=== PATIENT | male | born 1940 | race Caucasian/White ===

== ENCOUNTER 2017-04-11 16:32 | Emergency (ER) | payer MEDICARE, OTHER ==
[~2017-04-11] VITALS: Ht 162.6 cm; Wt 72.7 kg
[~2017-04-11 16:32] MED LIST: AMLO-511 PO; HYDR10 PO; HYDR25TA PO; LOSA50TA37 PO; TAMS0.4C32 PO
[2017-04-11 19:56] VITALS: BP 138/78
[2017-04-11 20:16] LABS: BASOPHILS # (AUTO) 0.01 K/uL (0.00-0.20); BASOPHILS % (AUTO) 0.1 % (0.0-2.0); EOSINOPHILS # (AUTO) 0.26 K/uL (0.00-0.70); EOSINOPHILS % (AUTO) 4.71 % (1.0-6.0); HEMATOCRIT 28.3 % (41-53); HEMOGLOBIN 8.8 g/dL (13.5-17.5); LYMPHOCYTES # (AUTO) 0.7 K/uL (1.0-4.8); MEAN CORPUSCULAR HEMOGLOBIN 25.2 pg (26.0-34.0); MEAN CORPUSCULAR HGB CONC 31.1 G/dL (31.0-37.0); MEAN CORPUSCULAR VOLUME 81 fL (80-100); MONOCYTES # (AUTO) 0.5 K/uL (0.1-1.0); MONOCYTES % (AUTO) 9.3 % (2.0-9.0); NEUTROPHILS % (AUTO) 73.9 % (40.0-70.0); PLATELET COUNT (AUTO) 276 K/uL (150-450); RED BLOOD CELL COUNT(AUTO) 3.48 MIL/uL (4.50-5.90); RED CELL DISTRIBUTION WIDTH 20.1 % (11.5-14.5); WHITE BLOOD COUNT (AUTO) 5.5 K/uL (4.5-11.0)
[2017-04-11 20:22] LABS: INR 1.8 (0.9-1.1); PROTHROMBIN TIME 19.5 SEC (9.4-11.6)
[2017-04-11 21:05] LABS: RBC MORPHOLOGY COMMENT ABNORMAL RBC MORPH
== END 2017-04-11 20:14 | disposition home or self-care (01) ==
LOC: EMS 16:34
DX: S20.212A Contusion of left front wall of thorax, initial encounter (principal); D68.32 Hemorrhagic disorder due to extrinsic circulating anticoagulants; I25.10 Atherosclerotic heart disease of native coronary artery without angina pectoris; I48.91 Unspecified atrial fibrillation; E78.00 Pure hypercholesterolemia, unspecified; I10 Essential (primary) hypertension; W10.9XXA Fall (on) (from) unspecified stairs and steps, initial encounter; Y93.01 Activity, walking, marching and hiking; Y92.89 Other specified places as the place of occurrence of the external cause; Y99.8 Other external cause status
CPT/HCPCS: 99284

== ENCOUNTER → 2017-04-13 | Outpatient (CLI) | payer MEDICARE, OTHER ==
[~2017-04-13] MED LIST changes: -AMLO-511 PO; -HYDR25TA PO; -TAMS0.4C32 PO
== END | disposition home or self-care (01) ==
LOC: RADPV 13:55
PROVIDERS: ATTEND Family Medicine
DX: S52.125A Nondisplaced fracture of head of left radius, initial encounter for closed fracture (principal); M19.022 Primary osteoarthritis, left elbow; M19.012 Primary osteoarthritis, left shoulder; M19.011 Primary osteoarthritis, right shoulder; S52.135D Nondisplaced fracture of neck of left radius, subsequent encounter for closed fracture with routine healing; X58.XXXA Exposure to other specified factors, initial encounter; Y93.9 Activity, unspecified; Y92.9 Unspecified place or not applicable; Y99.9 Unspecified external cause status

== ENCOUNTER 2017-06-17 17:00 | Inpatient (IN) | payer MEDICARE, OTHER ==
[~2017-06-17] VITALS: Ht 165.1 cm; Wt 76.2 kg
[~2017-06-17 17:00] MED LIST changes: +ACET-784 PO; +APIX2.5T PO; +AUD NEB; +BISA10S PR; +CARV6 PO; +DSS100 PO; +EPOE10003 SQ; +FURO-151 PO; -HYDR10 PO; +HYDR10TA31 PO; +IPRNEB IH; +MV-M1TAB2 PO; +ONDA4 IV; +OXYC-38 PO; +PANT40TA25 PO; +QUET25TA PO; +TAMS0.4C32 PO; +WARF10TA23 PO; +ZOSY225FZ IV
[2017-06-17] MEDS ORDERED: HEPARIN SODIUM,PORCINE 1,000 UNITS/ML VIAL IVP ONE (17:34)
[2017-06-17] MEDS ORDERED: DOCUSATE SODIUM 283 MG/5 ML MINI-ENEMA PR PRN (18:15)
[2017-06-17] MEDS ORDERED: ONDANSETRON HCL 4 MG/2 ML VIAL IVP PRN (18:15)
[2017-06-17] MEDS ORDERED: OxyCODONE HCL/ACETAMINOPHEN 5-325 MG TABLET PO PRN (18:15)
[2017-06-17 19:48] VITALS: BP 113/61
[2017-06-17] MEDS: IPRATROPIUM BROMIDE 0.5 MG/2.5 ML NEB SOLUTION NEB SCH ×2 (19:54→22:15)
[2017-06-17] MEDS: ALBUTEROL SULFATE 2.5 MG/0.5 ML NEB SOLUTION NEB SCH ×2 (19:54→22:15)
[2017-06-17] MEDS ORDERED: TEMAZEPAM 15 MG CAPSULE PO PRN (20:15)
[2017-06-17] MEDS: DOCUSATE SODIUM 100 MG CAPSULE PO SCH (21:00)
[2017-06-17] MEDS: SENNA 187 MG TABLET PO SCH (21:00)
[2017-06-17] MEDS: CARVEDILOL 6.25 MG TABLET PO SCH ×2 (21:00→22:09)
[2017-06-17 21:22] VITALS: BP 129/77
[2017-06-17] MEDS: TAMSULOSIN HCL 0.4 MG CAPSULE PO SCH (22:07)
[2017-06-17] MEDS: APIXABAN 2.5 MG TABLET PO SCH (22:07)
[2017-06-17] MEDS: PIPERACILLIN SODIUM/TAZOBACTAM 2.25 GM in DEXTROSE 5%-WATER 50 ML IV SCH (22:08)
[2017-06-17 23:48] VITALS: BP 111/66
[2017-06-18] MEDS: 0.9% SODIUM CHLORIDE 10 ML SYRINGE IVP SCH ×4 (00:10→23:37)
[2017-06-18] MEDS: OXYGEN THERAPY IH SCH ×3 (01:09→23:36)
[2017-06-18 01:40] LABS: APPEARANCE,URINE TURBID (CLEAR); GLUCOSE, URINE (UA) NEGATIVE (NEGATIVE); KETONES,URINE NEGATIVE (NEGATIVE); LEUKOCYTE ESTERASE ,URINE LARGE (NEGATIVE); OCCULT BLOOD,URINE LARGE (NEGATIVE); PROTEIN,URINE SEE CONFIRM (NEGATIVE)
[2017-06-18 02:02] LABS: SULFOSALICYLIC ACID,URINE 2+ (Negative)
[2017-06-18 02:04] LABS: WBC,URINE >100 /HPF (0-5)
[2017-06-18] MEDS: PIPERACILLIN SODIUM/TAZOBACTAM 2.25 GM in DEXTROSE 5%-WATER 50 ML IV SCH (05:08)
[2017-06-18] MEDS ORDERED: VANCOMYCIN HCL 1 GM/D5% WATER 200 ML IV ONE (06:00)
[2017-06-18] MEDS: IPRATROPIUM BROMIDE 0.5 MG/2.5 ML NEB SOLUTION NEB SCH ×4 (07:00→23:00)
[2017-06-18] MEDS: ALBUTEROL SULFATE 2.5 MG/0.5 ML NEB SOLUTION NEB SCH ×4 (07:00→23:00)
[2017-06-18 07:20] LABS: BASOPHILS % (AUTO) 0.9 % (0.0-2.0); EOSINOPHILS % (AUTO) 5.1 % (1.0-6.0); HEMATOCRIT 31.8 % (41-53); HEMOGLOBIN 10.2 g/dL (13.5-17.5); LYMPHOCYTES # (AUTO) 0.8 K/uL (1.0-4.8); LYMPHOCYTES % (AUTO) 14.4 % (22.0-44.0); MEAN CORPUSCULAR HEMOGLOBIN 29.4 pg (26.0-34.0); MEAN CORPUSCULAR VOLUME 92 fL (80-100); MONOCYTES # (AUTO) 0.5 K/uL (0.1-1.0); MONOCYTES % (AUTO) 8.2 % (2.0-9.0); NEUTROPHILS % (AUTO) 71.4 % (40.0-70.0); PLATELET COUNT (AUTO) 157 K/uL (150-450); RED BLOOD CELL COUNT(AUTO) 3.47 MIL/uL (4.50-5.90); RED CELL DISTRIBUTION WIDTH 27.7 % (11.5-14.5); WHITE BLOOD COUNT (AUTO) 5.6 K/uL (4.5-11.0)
[2017-06-18 07:40] VITALS: BP 122/61
[2017-06-18 07:47] LABS: ALBUMIN 2.8 g/dL (3.4-5.0); BILIRUBIN,TOTAL 1.1 mg/dL (0.1-1.0); CREATININE 4.5 mg/dL (0.60-1.30); MAGNESIUM 1.8 mg/dL (1.80-2.40); PHOSPHORUS 4.8 mg/dL (2.5-4.9); POTASSIUM 3.6 mmol/L (3.5-5.1); TOTAL PROTEIN, SERUM 5.9 g/dL (6.4-8.2)
[2017-06-18] MEDS: MULTIVITAMINS WITH MINERALS, THERAPEUTIC TABLET PO SCH (08:07)
[2017-06-18] MEDS: PANTOPRAZOLE SODIUM 40 MG DR TABLET PO SCH (08:07)
[2017-06-18] MEDS: DOCUSATE SODIUM 100 MG CAPSULE PO SCH ×3 (08:07→21:00)
[2017-06-18] MEDS: FUROSEMIDE 40 MG TABLET PO SCH (08:07)
[2017-06-18] MEDS: APIXABAN 2.5 MG TABLET PO SCH ×2 (08:07→21:46)
[2017-06-18] MEDS: CARVEDILOL 6.25 MG TABLET PO SCH ×2 (08:07→21:46)
[2017-06-18] MEDS: EPOETIN ALFA 10,000 UNITS/ML VIAL SQ SCH (08:07)
[2017-06-18] MEDS ORDERED: VANCOMYCIN HCL 1 GM/D5% WATER 200 ML IV PRN (08:30)
[2017-06-18] MEDS: CefTAZidime PENTAHYDRATE 1 GM in DEXTROSE 5%-WATER 50 ML IV SCH (18:58)
[2017-06-18 19:23] VITALS: BP 136/94
[2017-06-18] MEDS: SENNA 187 MG TABLET PO SCH (21:00)
[2017-06-18] MEDS: TAMSULOSIN HCL 0.4 MG CAPSULE PO SCH (21:46)
[2017-06-18] MEDS: LACTOBACILLUS ACIDOPHILUS/BULGARICUS TABLET PO SCH (21:46)
[2017-06-19] MEDS: 0.9% SODIUM CHLORIDE 10 ML SYRINGE IVP SCH ×4 (00:02→23:24)
[2017-06-19 00:34] VITALS: BP 115/72
[2017-06-19] MEDS: ACETAMINOPHEN 325 MG TABLET PO PRN (01:42)
[2017-06-19] MEDS: OXYGEN THERAPY IH SCH ×2 (07:25→20:13)
[2017-06-19] MEDS: IPRATROPIUM BROMIDE 0.5 MG/2.5 ML NEB SOLUTION NEB SCH ×5 (07:25→23:00)
[2017-06-19] MEDS: ALBUTEROL SULFATE 2.5 MG/0.5 ML NEB SOLUTION NEB SCH ×5 (07:25→23:00)
[2017-06-19 07:39] VITALS: BP 137/76
[2017-06-19] MEDS: DOCUSATE SODIUM 100 MG CAPSULE PO SCH ×2 (09:00→20:14)
[2017-06-19] MEDS: CARVEDILOL 6.25 MG TABLET PO SCH ×2 (09:42→20:14)
[2017-06-19] MEDS: FUROSEMIDE 40 MG TABLET PO SCH (09:42)
[2017-06-19] MEDS: PANTOPRAZOLE SODIUM 40 MG DR TABLET PO SCH (09:42)
[2017-06-19] MEDS: MULTIVITAMINS WITH MINERALS, THERAPEUTIC TABLET PO SCH (09:43)
[2017-06-19] MEDS ORDERED: SODIUM CL IRRIG SOLN BOTTLE 250 ML IRRIG ONE (10:28)
[2017-06-19] MEDS: APIXABAN 2.5 MG TABLET PO SCH ×2 (10:50→20:14)
[2017-06-19] MEDS: LACTOBACILLUS ACIDOPHILUS/BULGARICUS TABLET PO SCH ×2 (10:50→20:14)
[2017-06-19] MEDS: FLUCONAZOLE 100 MG TABLET PO SCH (10:50)
[2017-06-19 15:20] VITALS: BP 113/80
[2017-06-19] MEDS: CefTAZidime PENTAHYDRATE 1 GM in DEXTROSE 5%-WATER 50 ML IV SCH (16:17)
[2017-06-19 20:05] VITALS: BP 111/78
[2017-06-19] MEDS: TAMSULOSIN HCL 0.4 MG CAPSULE PO SCH (20:14)
[2017-06-19] MEDS: SENNA 187 MG TABLET PO SCH (20:14)
[2017-06-19 23:24] VITALS: BP 126/58
[2017-06-20] MEDS: ACETAMINOPHEN 325 MG TABLET PO PRN (02:24)
[2017-06-20] MEDS ORDERED: WATER FOR IRRIGATION,STERILE 1000 ML SOLUTION BOTTLE ONE (04:17)
[2017-06-20 06:40] LABS: BASOPHILS # (AUTO) 0.04 K/uL (0.00-0.20); BASOPHILS % (AUTO) 0.6 % (0.0-2.0); EOSINOPHILS % (AUTO) 3.61 % (1.0-6.0); HEMOGLOBIN 10.1 g/dL (13.5-17.5); LYMPHOCYTES # (AUTO) 1.1 K/uL (1.0-4.8); LYMPHOCYTES % (AUTO) 19.5 % (22.0-44.0); MEAN CORPUSCULAR HEMOGLOBIN 29.8 pg (26.0-34.0); MEAN CORPUSCULAR HGB CONC 31.6 G/dL (31.0-37.0); MEAN CORPUSCULAR VOLUME 94 fL (80-100); MONOCYTES # (AUTO) 0.5 K/uL (0.1-1.0); MONOCYTES % (AUTO) 8.1 % (2.0-9.0); NEUTROPHILS # (AUTO) 3.8 K/uL (1.8-7.7); NEUTROPHILS % (AUTO) 68.1 % (40.0-70.0); PLATELET COUNT (AUTO) 157 K/uL (150-450); RED CELL DISTRIBUTION WIDTH 28.4 % (11.5-14.5); WHITE BLOOD COUNT (AUTO) 5.5 K/uL (4.5-11.0)
[2017-06-20 06:55] LABS: CALCIUM, TOTAL 9.3 mg/dL (8.8-10.5); CREATININE 4.2 mg/dL (0.60-1.30); POTASSIUM 3.5 mmol/L (3.5-5.1)
[2017-06-20] MEDS: IPRATROPIUM BROMIDE 0.5 MG/2.5 ML NEB SOLUTION NEB SCH ×5 (07:38→22:59)
[2017-06-20] MEDS: ALBUTEROL SULFATE 2.5 MG/0.5 ML NEB SOLUTION NEB SCH ×5 (07:38→22:59)
[2017-06-20 08:30] VITALS: BP 125/70
[2017-06-20 08:48] LABS: RBC MORPHOLOGY COMMENT ABNORMAL RBC MORPH
[2017-06-20] MEDS: DOCUSATE SODIUM 100 MG CAPSULE PO SCH ×3 (09:00→20:59)
[2017-06-20] MEDS: PANTOPRAZOLE SODIUM 40 MG DR TABLET PO SCH (09:24)
[2017-06-20] MEDS: LACTOBACILLUS ACIDOPHILUS/BULGARICUS TABLET PO SCH ×2 (09:24→20:51)
[2017-06-20] MEDS: APIXABAN 2.5 MG TABLET PO SCH ×2 (09:24→20:51)
[2017-06-20] MEDS: FUROSEMIDE 40 MG TABLET PO SCH (09:24)
[2017-06-20] MEDS: CARVEDILOL 6.25 MG TABLET PO SCH ×2 (09:24→20:51)
[2017-06-20] MEDS: 0.9% SODIUM CHLORIDE 10 ML SYRINGE IVP SCH ×3 (09:24→23:40)
[2017-06-20] MEDS: FLUCONAZOLE 100 MG TABLET PO SCH (09:24)
[2017-06-20] MEDS: MULTIVITAMINS WITH MINERALS, THERAPEUTIC TABLET PO SCH (09:24)
[2017-06-20] MEDS: OXYGEN THERAPY IH SCH ×2 (09:25→20:51)
[2017-06-20 16:00] VITALS: BP 125/64
[2017-06-20] MEDS: CefTAZidime PENTAHYDRATE 1 GM in DEXTROSE 5%-WATER 50 ML IV SCH (16:29)
[2017-06-20] MEDS ORDERED: SODIUM CHLORIDE 0.9% 1,000 ML IV ONE (17:27)
[2017-06-20 20:45] VITALS: BP 147/88
[2017-06-20] MEDS: TAMSULOSIN HCL 0.4 MG CAPSULE PO SCH (20:51)
[2017-06-20] MEDS: CLOTRIMAZOLE 1% 15 GM CREAM TP SCH (20:51)
[2017-06-20] MEDS: SENNA 187 MG TABLET PO SCH (20:59)
[2017-06-20 23:45] VITALS: BP 110/78
[2017-06-21] MEDS: ACETAMINOPHEN 325 MG TABLET PO PRN (03:39)
[2017-06-21] MEDS: OXYGEN THERAPY IH SCH ×2 (06:42→20:08)
[2017-06-21] MEDS: ALBUTEROL SULFATE 2.5 MG/0.5 ML NEB SOLUTION NEB SCH ×5 (06:42→23:25)
[2017-06-21] MEDS: IPRATROPIUM BROMIDE 0.5 MG/2.5 ML NEB SOLUTION NEB SCH ×5 (06:42→23:25)
[2017-06-21 07:15] VITALS: BP 125/79
[2017-06-21] MEDS: 0.9% SODIUM CHLORIDE 10 ML SYRINGE IVP SCH ×3 (08:01→23:25)
[2017-06-21] MEDS: CLOTRIMAZOLE 1% 15 GM CREAM TP SCH ×2 (08:01→20:04)
[2017-06-21] MEDS: FUROSEMIDE 40 MG TABLET PO SCH (08:01)
[2017-06-21] MEDS: DOCUSATE SODIUM 100 MG CAPSULE PO SCH ×3 (08:01→21:00)
[2017-06-21] MEDS: EPOETIN ALFA 10,000 UNITS/ML VIAL SQ SCH (08:01)
[2017-06-21] MEDS: FLUCONAZOLE 100 MG TABLET PO SCH (08:01)
[2017-06-21] MEDS: PANTOPRAZOLE SODIUM 40 MG DR TABLET PO SCH (08:01)
[2017-06-21] MEDS: CARVEDILOL 6.25 MG TABLET PO SCH ×2 (08:02→20:04)
[2017-06-21] MEDS: MULTIVITAMINS WITH MINERALS, THERAPEUTIC TABLET PO SCH (08:02)
[2017-06-21] MEDS: LACTOBACILLUS ACIDOPHILUS/BULGARICUS TABLET PO SCH ×2 (08:02→20:03)
[2017-06-21] MEDS ORDERED: HEPARIN SODIUM,PORCINE 1,000 UNITS/ML VIAL IVP ONE ×2 (12:00)
[2017-06-21] MEDS ORDERED: SODIUM CHLORIDE 0.9% 1,000 ML IV ONE ×2 (12:53)
[2017-06-21 17:48] VITALS: BP 111/75
[2017-06-21] MEDS: LEVOFLOXACIN 250 MG TABLET PO SCH (19:47)
[2017-06-21] MEDS: TAMSULOSIN HCL 0.4 MG CAPSULE PO SCH (20:03)
[2017-06-21 20:06] VITALS: BP 111/64
[2017-06-21] MEDS: SENNA 187 MG TABLET PO SCH (21:00)
[2017-06-21 23:35] VITALS: BP 116/69
[2017-06-22] MEDS: IPRATROPIUM BROMIDE 0.5 MG/2.5 ML NEB SOLUTION NEB SCH ×5 (07:00→22:47)
[2017-06-22] MEDS: ALBUTEROL SULFATE 2.5 MG/0.5 ML NEB SOLUTION NEB SCH ×5 (07:00→22:47)
[2017-06-22 07:52] VITALS: BP 149/79
[2017-06-22] MEDS: OXYGEN THERAPY IH SCH ×2 (08:00→19:31)
[2017-06-22] MEDS: PANTOPRAZOLE SODIUM 40 MG DR TABLET PO SCH (08:35)
[2017-06-22] MEDS: LACTOBACILLUS ACIDOPHILUS/BULGARICUS TABLET PO SCH ×2 (08:35→21:10)
[2017-06-22] MEDS: FUROSEMIDE 40 MG TABLET PO SCH (08:35)
[2017-06-22] MEDS: CLOTRIMAZOLE 1% 15 GM CREAM TP SCH ×2 (08:35→21:10)
[2017-06-22] MEDS: LEVOFLOXACIN 250 MG TABLET PO SCH (08:35)
[2017-06-22] MEDS: MULTIVITAMINS WITH MINERALS, THERAPEUTIC TABLET PO SCH (08:35)
[2017-06-22] MEDS: CARVEDILOL 6.25 MG TABLET PO SCH ×2 (08:35→21:10)
[2017-06-22] MEDS: 0.9% SODIUM CHLORIDE 10 ML SYRINGE IVP SCH (08:36)
[2017-06-22] MEDS: DOCUSATE SODIUM 100 MG CAPSULE PO SCH ×3 (08:36→21:10)
[2017-06-22 15:04] VITALS: BP 124/82
[2017-06-22] MEDS: SENNA 187 MG TABLET PO SCH (21:10)
[2017-06-22] MEDS: TAMSULOSIN HCL 0.4 MG CAPSULE PO SCH (21:10)
[2017-06-23 00:07] VITALS: BP 108/68
[2017-06-23 07:13] LABS: BASOPHILS # (AUTO) 0.03 K/uL (0.00-0.20); BASOPHILS % (AUTO) 0.8 % (0.0-2.0); EOSINOPHILS # (AUTO) 0.24 K/uL (0.00-0.70); EOSINOPHILS % (AUTO) 5.44 % (1.0-6.0); HEMATOCRIT 29.3 % (41-53); LYMPHOCYTES # (AUTO) 1.2 K/uL (1.0-4.8); LYMPHOCYTES % (AUTO) 26.3 % (22.0-44.0); MEAN CORPUSCULAR HEMOGLOBIN 29.1 pg (26.0-34.0); MEAN CORPUSCULAR HGB CONC 30.8 G/dL (31.0-37.0); MEAN CORPUSCULAR VOLUME 94 fL (80-100); MONOCYTES # (AUTO) 0.4 K/uL (0.1-1.0); MONOCYTES % (AUTO) 8.8 % (2.0-9.0); NEUTROPHILS # (AUTO) 2.6 K/uL (1.8-7.7); NEUTROPHILS % (AUTO) 58.7 % (40.0-70.0); PLATELET COUNT (AUTO) 143 K/uL (150-450); RED CELL DISTRIBUTION WIDTH 28.7 % (11.5-14.5); WHITE BLOOD COUNT (AUTO) 4.5 K/uL (4.5-11.0)
[2017-06-23 07:16] VITALS: BP 132/72
[2017-06-23] MEDS: OXYGEN THERAPY IH SCH ×2 (07:21→20:00)
[2017-06-23 07:22] LABS: CALCIUM, TOTAL 9.2 mg/dL (8.8-10.5); CREATININE 4.46 mg/dL (0.60-1.30); POTASSIUM 3.6 mmol/L (3.5-5.1)
[2017-06-23] MEDS: IPRATROPIUM BROMIDE 0.5 MG/2.5 ML NEB SOLUTION NEB SCH ×5 (07:50→23:34)
[2017-06-23] MEDS: ALBUTEROL SULFATE 2.5 MG/0.5 ML NEB SOLUTION NEB SCH ×5 (07:50→23:34)
[2017-06-23] MEDS: DOCUSATE SODIUM 100 MG CAPSULE PO SCH ×4 (09:00→21:17)
[2017-06-23] MEDS: LACTOBACILLUS ACIDOPHILUS/BULGARICUS TABLET PO SCH ×2 (09:09→21:17)
[2017-06-23] MEDS: CLOTRIMAZOLE 1% 15 GM CREAM TP SCH ×2 (09:09→21:17)
[2017-06-23] MEDS: LEVOFLOXACIN 250 MG TABLET PO SCH (09:09)
[2017-06-23] MEDS: CARVEDILOL 6.25 MG TABLET PO SCH ×2 (09:10→21:17)
[2017-06-23] MEDS: MULTIVITAMINS WITH MINERALS, THERAPEUTIC TABLET PO SCH (09:10)
[2017-06-23] MEDS: EPOETIN ALFA 10,000 UNITS/ML VIAL SQ SCH (09:10)
[2017-06-23] MEDS: PANTOPRAZOLE SODIUM 40 MG DR TABLET PO SCH (09:10)
[2017-06-23] MEDS: FUROSEMIDE 40 MG TABLET PO SCH (09:10)
[2017-06-23] MEDS ORDERED: HEPARIN SODIUM,PORCINE 1,000 UNITS/ML VIAL IVP ONE (12:00)
[2017-06-23] MEDS ORDERED: SODIUM CHLORIDE 0.9% 2,000 ML IV ONE (13:02)
[2017-06-23 13:03] LABS: RBC MORPHOLOGY COMMENT DIMORPHIC RBC
[2017-06-23 17:24] VITALS: BP 132/82
[2017-06-23 20:30] VITALS: BP 117/78
[2017-06-23] MEDS: SENNA 187 MG TABLET PO SCH ×2 (21:00→21:17)
[2017-06-23] MEDS: TAMSULOSIN HCL 0.4 MG CAPSULE PO SCH (21:17)
[2017-06-24] VITALS: BP 126/68
[2017-06-24 07:11] VITALS: BP 113/74
[2017-06-24] MEDS: IPRATROPIUM BROMIDE 0.5 MG/2.5 ML NEB SOLUTION NEB SCH ×5 (07:26→23:49)
[2017-06-24] MEDS: ALBUTEROL SULFATE 2.5 MG/0.5 ML NEB SOLUTION NEB SCH ×5 (07:26→23:49)
[2017-06-24] MEDS: PANTOPRAZOLE SODIUM 40 MG DR TABLET PO SCH (08:00)
[2017-06-24] MEDS: OXYGEN THERAPY IH SCH ×2 (08:00→20:00)
[2017-06-24] MEDS: MULTIVITAMINS WITH MINERALS, THERAPEUTIC TABLET PO SCH (08:01)
[2017-06-24] MEDS: CLOTRIMAZOLE 1% 15 GM CREAM TP SCH ×2 (08:01→21:14)
[2017-06-24] MEDS: CARVEDILOL 6.25 MG TABLET PO SCH ×2 (08:01→21:16)
[2017-06-24] MEDS: DOCUSATE SODIUM 100 MG CAPSULE PO SCH ×2 (08:01→09:00)
[2017-06-24] MEDS: LEVOFLOXACIN 250 MG TABLET PO SCH (08:01)
[2017-06-24] MEDS: LACTOBACILLUS ACIDOPHILUS/BULGARICUS TABLET PO SCH ×2 (08:01→21:06)
[2017-06-24] MEDS: FUROSEMIDE 40 MG TABLET PO SCH (08:02)
[2017-06-24 15:34] VITALS: BP 124/86
[2017-06-24 21:00] VITALS: BP 132/76
[2017-06-24] MEDS ORDERED: DOCUSATE SODIUM 100 MG CAPSULE PO PRN (21:00)
[2017-06-24] MEDS: TAMSULOSIN HCL 0.4 MG CAPSULE PO SCH (21:06)
[2017-06-24] MEDS: SENNA 187 MG TABLET PO SCH (21:06)
[2017-06-25 00:08] VITALS: BP 123/68
[2017-06-25 06:35] LABS: BASOPHILS # (AUTO) 0.01 K/uL (0.00-0.20); BASOPHILS % (AUTO) 0.3 % (0.0-2.0); EOSINOPHILS # (AUTO) 0.23 K/uL (0.00-0.70); EOSINOPHILS % (AUTO) 5.11 % (1.0-6.0); HEMATOCRIT 30.2 % (41-53); HEMOGLOBIN 9.3 g/dL (13.5-17.5); LYMPHOCYTES # (AUTO) 0.9 K/uL (1.0-4.8); LYMPHOCYTES % (AUTO) 20.4 % (22.0-44.0); MEAN CORPUSCULAR HEMOGLOBIN 29.2 pg (26.0-34.0); MEAN CORPUSCULAR HGB CONC 30.9 G/dL (31.0-37.0); MEAN CORPUSCULAR VOLUME 94 fL (80-100); MONOCYTES # (AUTO) 0.4 K/uL (0.1-1.0); MONOCYTES % (AUTO) 9.7 % (2.0-9.0); NEUTROPHILS # (AUTO) 2.9 K/uL (1.8-7.7); NEUTROPHILS % (AUTO) 64.5 % (40.0-70.0); PLATELET COUNT (AUTO) 131 K/uL (150-450); RED CELL DISTRIBUTION WIDTH 27.9 % (11.5-14.5); WHITE BLOOD COUNT (AUTO) 4.5 K/uL (4.5-11.0)
[2017-06-25 07:00] LABS: CALCIUM, TOTAL 9.3 mg/dL (8.8-10.5); CREATININE 4.37 mg/dL (0.60-1.30); MAGNESIUM 1.6 mg/dL (1.80-2.40); PHOSPHORUS 4.1 mg/dL (2.5-4.9); POTASSIUM 3.6 mmol/L (3.5-5.1)
[2017-06-25] MEDS: IPRATROPIUM BROMIDE 0.5 MG/2.5 ML NEB SOLUTION NEB SCH ×5 (07:28→20:16)
[2017-06-25] MEDS: ALBUTEROL SULFATE 2.5 MG/0.5 ML NEB SOLUTION NEB SCH ×5 (07:28→20:17)
[2017-06-25] MEDS: OXYGEN THERAPY IH SCH ×2 (07:38→20:00)
[2017-06-25 07:57] VITALS: BP 133/72
[2017-06-25] MEDS: PANTOPRAZOLE SODIUM 40 MG DR TABLET PO SCH (08:11)
[2017-06-25] MEDS: MULTIVITAMINS WITH MINERALS, THERAPEUTIC TABLET PO SCH (08:11)
[2017-06-25] MEDS: LACTOBACILLUS ACIDOPHILUS/BULGARICUS TABLET PO SCH ×2 (08:11→20:27)
[2017-06-25] MEDS: CARVEDILOL 6.25 MG TABLET PO SCH ×2 (08:11→20:27)
[2017-06-25] MEDS: FUROSEMIDE 40 MG TABLET PO SCH (08:12)
[2017-06-25] MEDS: LEVOFLOXACIN 250 MG TABLET PO SCH (08:12)
[2017-06-25] MEDS: EPOETIN ALFA 10,000 UNITS/ML VIAL SQ SCH (08:12)
[2017-06-25 09:45] LABS: RBC MORPHOLOGY COMMENT DIMORPHIC RBC
[2017-06-25] MEDS: CLOTRIMAZOLE 1% 15 GM CREAM TP SCH ×2 (13:33→20:27)
[2017-06-25 14:53] VITALS: BP 125/78
[2017-06-25] MEDS ORDERED: HEPARIN SODIUM,PORCINE 1,000 UNITS/ML VIAL IVP ONE (18:56)
[2017-06-25] MEDS: SENNA 187 MG TABLET PO SCH (20:27)
[2017-06-25] MEDS: TAMSULOSIN HCL 0.4 MG CAPSULE PO SCH (20:27)
[2017-06-25 20:52] VITALS: BP 128/76
[2017-06-25 23:29] VITALS: BP 121/63
[2017-06-26] MEDS: ALBUTEROL SULFATE 2.5 MG/0.5 ML NEB SOLUTION NEB SCH ×4 (07:39→19:44)
[2017-06-26] MEDS: IPRATROPIUM BROMIDE 0.5 MG/2.5 ML NEB SOLUTION NEB SCH ×4 (07:39→19:44)
[2017-06-26] MEDS: OXYGEN THERAPY IH SCH ×2 (08:00→20:00)
[2017-06-26 08:29] VITALS: BP 130/78
[2017-06-26] MEDS: PANTOPRAZOLE SODIUM 40 MG DR TABLET PO SCH (08:55)
[2017-06-26] MEDS: CARVEDILOL 6.25 MG TABLET PO SCH ×2 (08:55→20:07)
[2017-06-26] MEDS: CLOTRIMAZOLE 1% 15 GM CREAM TP SCH ×2 (08:55→20:06)
[2017-06-26] MEDS: LEVOFLOXACIN 250 MG TABLET PO SCH (08:55)
[2017-06-26] MEDS: LACTOBACILLUS ACIDOPHILUS/BULGARICUS TABLET PO SCH ×2 (08:55→20:06)
[2017-06-26] MEDS: MULTIVITAMINS WITH MINERALS, THERAPEUTIC TABLET PO SCH (08:55)
[2017-06-26 15:05] VITALS: BP 125/69
[2017-06-26] MEDS: SENNA 187 MG TABLET PO SCH ×2 (20:07→20:15)
[2017-06-26] MEDS: TAMSULOSIN HCL 0.4 MG CAPSULE PO SCH (20:07)
[2017-06-27] VITALS: BP 124/76
[2017-06-27 07:20] VITALS: BP 126/76
[2017-06-27] MEDS: ALBUTEROL SULFATE 2.5 MG/0.5 ML NEB SOLUTION NEB SCH ×5 (07:47→23:00)
[2017-06-27] MEDS: IPRATROPIUM BROMIDE 0.5 MG/2.5 ML NEB SOLUTION NEB SCH ×5 (07:47→23:00)
[2017-06-27] MEDS: OXYGEN THERAPY IH SCH ×2 (08:00→20:00)
[2017-06-27] MEDS: CARVEDILOL 6.25 MG TABLET PO SCH ×2 (08:26→20:55)
[2017-06-27] MEDS: LACTOBACILLUS ACIDOPHILUS/BULGARICUS TABLET PO SCH ×2 (08:26→20:55)
[2017-06-27] MEDS: FUROSEMIDE 40 MG TABLET PO SCH (08:26)
[2017-06-27] MEDS: CLOTRIMAZOLE 1% 15 GM CREAM TP SCH ×2 (08:26→22:57)
[2017-06-27] MEDS: LEVOFLOXACIN 250 MG TABLET PO SCH (08:27)
[2017-06-27] MEDS: MULTIVITAMINS WITH MINERALS, THERAPEUTIC TABLET PO SCH (08:27)
[2017-06-27] MEDS: PANTOPRAZOLE SODIUM 40 MG DR TABLET PO SCH (08:27)
[2017-06-27] MEDS: APIXABAN 2.5 MG TABLET PO SCH ×2 (16:37→21:31)
[2017-06-27 16:45] VITALS: BP 117/86
[2017-06-27] MEDS: TAMSULOSIN HCL 0.4 MG CAPSULE PO SCH (20:55)
[2017-06-27] MEDS: SENNA 187 MG TABLET PO SCH (21:00)
[2017-06-28] VITALS: BP 107/64
[2017-06-28 07:31] LABS: BASOPHILS % (AUTO) 0.5 % (0.0-2.0); EOSINOPHILS % (AUTO) 4.4 % (1.0-6.0); HEMATOCRIT 29.6 % (41-53); HEMOGLOBIN 9.5 g/dL (13.5-17.5); LYMPHOCYTES # (AUTO) 1.1 K/uL (1.0-4.8); LYMPHOCYTES % (AUTO) 25.1 % (22.0-44.0); MEAN CORPUSCULAR HEMOGLOBIN 29.9 pg (26.0-34.0); MEAN CORPUSCULAR HGB CONC 32.3 G/dL (31.0-37.0); MEAN CORPUSCULAR VOLUME 93 fL (80-100); MONOCYTES # (AUTO) 0.5 K/uL (0.1-1.0); MONOCYTES % (AUTO) 11.9 % (2.0-9.0); NEUTROPHILS # (AUTO) 2.6 K/uL (1.8-7.7); NEUTROPHILS % (AUTO) 58.1 % (40.0-70.0); PLATELET COUNT (AUTO) 109 K/uL (150-450); RED BLOOD CELL COUNT(AUTO) 3.19 MIL/uL (4.50-5.90); RED CELL DISTRIBUTION WIDTH 27.9 % (11.5-14.5); WHITE BLOOD COUNT (AUTO) 4.5 K/uL (4.5-11.0)
[2017-06-28 07:34] VITALS: BP 128/83
[2017-06-28 07:41] LABS: CALCIUM, TOTAL 9.2 mg/dL (8.8-10.5); CREATININE 5.04 mg/dL (0.60-1.30); MAGNESIUM 1.6 mg/dL (1.80-2.40); PHOSPHORUS 3.1 mg/dL (2.5-4.9)
[2017-06-28] MEDS: OXYGEN THERAPY IH SCH (08:00)
[2017-06-28] MEDS: MULTIVITAMINS WITH MINERALS, THERAPEUTIC TABLET PO SCH (08:01)
[2017-06-28] MEDS: PANTOPRAZOLE SODIUM 40 MG DR TABLET PO SCH (08:01)
[2017-06-28] MEDS: APIXABAN 2.5 MG TABLET PO SCH ×2 (08:01→20:32)
[2017-06-28] MEDS: CARVEDILOL 6.25 MG TABLET PO SCH ×2 (08:01→20:32)
[2017-06-28] MEDS: LACTOBACILLUS ACIDOPHILUS/BULGARICUS TABLET PO SCH ×2 (08:01→20:32)
[2017-06-28] MEDS: LEVOFLOXACIN 250 MG TABLET PO SCH (08:01)
[2017-06-28] MEDS: EPOETIN ALFA 10,000 UNITS/ML VIAL SQ SCH (08:02)
[2017-06-28] MEDS: CLOTRIMAZOLE 1% 15 GM CREAM TP SCH ×2 (08:04→20:32)
[2017-06-28] MEDS: ALBUTEROL SULFATE 2.5 MG/0.5 ML NEB SOLUTION NEB SCH ×5 (08:22→23:00)
[2017-06-28] MEDS: IPRATROPIUM BROMIDE 0.5 MG/2.5 ML NEB SOLUTION NEB SCH ×5 (08:22→23:00)
[2017-06-28] MEDS ORDERED: EPOETIN ALFA 10,000 UNITS/ML VIAL SQ SCH (09:00)
[2017-06-28] MEDS ORDERED: BARIUM SULFATE 0.1% SUSPENSION 450 ML BOTTLE ONE (09:11)
[2017-06-28 09:44] LABS: RBC MORPHOLOGY COMMENT ABNORMAL RBC MORPH
[2017-06-28] MEDS ORDERED: HEPARIN SODIUM,PORCINE 1,000 UNITS/ML VIAL IVP ONE ×3 (12:00→17:00)
[2017-06-28 15:33] VITALS: BP 126/87
[2017-06-28] MEDS ORDERED: MANNITOL 25%-12.5 GM/50 ML VIAL IVP PRN (17:00)
[2017-06-28] MEDS ORDERED: ALBUMIN HUMAN 25%-12.5GM/50ML IV BOTTLE IV PRN (17:00)
[2017-06-28] MEDS: TAMSULOSIN HCL 0.4 MG CAPSULE PO SCH (20:32)
[2017-06-28] MEDS: SENNA 187 MG TABLET PO SCH (20:32)
[2017-06-28 20:33] VITALS: BP 126/66
[2017-06-29] VITALS: BP 114/85
[2017-06-29] MEDS: ALBUTEROL SULFATE 2.5 MG/0.5 ML NEB SOLUTION NEB SCH ×5 (07:25→23:00)
[2017-06-29] MEDS: IPRATROPIUM BROMIDE 0.5 MG/2.5 ML NEB SOLUTION NEB SCH ×6 (07:25→23:00)
[2017-06-29 07:42] VITALS: BP 119/77
[2017-06-29] MEDS: OXYGEN THERAPY IH SCH ×3 (07:50→20:00)
[2017-06-29] MEDS: PANTOPRAZOLE SODIUM 40 MG DR TABLET PO SCH (07:51)
[2017-06-29] MEDS: LEVOFLOXACIN 250 MG TABLET PO SCH (07:51)
[2017-06-29] MEDS: LACTOBACILLUS ACIDOPHILUS/BULGARICUS TABLET PO SCH ×2 (07:51→20:17)
[2017-06-29] MEDS: CARVEDILOL 6.25 MG TABLET PO SCH ×2 (07:51→20:17)
[2017-06-29] MEDS: APIXABAN 2.5 MG TABLET PO SCH ×2 (07:51→20:17)
[2017-06-29] MEDS: FUROSEMIDE 40 MG TABLET PO SCH (07:51)
[2017-06-29] MEDS: MULTIVITAMINS WITH MINERALS, THERAPEUTIC TABLET PO SCH (07:52)
[2017-06-29] MEDS: CLOTRIMAZOLE 1% 15 GM CREAM TP SCH ×2 (07:52→20:18)
[2017-06-29 15:35] VITALS: BP 126/79
[2017-06-29] MEDS: TAMSULOSIN HCL 0.4 MG CAPSULE PO SCH (20:17)
[2017-06-29] MEDS: SENNA 187 MG TABLET PO SCH (20:18)
[2017-06-29 20:44] VITALS: BP 112/73
[2017-06-29 23:37] VITALS: BP 130/79
[2017-06-30] MEDS: ALBUTEROL SULFATE 2.5 MG/0.5 ML NEB SOLUTION NEB SCH ×5 (07:13→23:09)
[2017-06-30] MEDS: IPRATROPIUM BROMIDE 0.5 MG/2.5 ML NEB SOLUTION NEB SCH ×5 (07:13→23:09)
[2017-06-30 07:29] VITALS: BP 132/78
[2017-06-30] MEDS: OXYGEN THERAPY IH SCH ×3 (08:00→20:25)
[2017-06-30] MEDS: CARVEDILOL 6.25 MG TABLET PO SCH ×2 (08:40→20:24)
[2017-06-30] MEDS: LACTOBACILLUS ACIDOPHILUS/BULGARICUS TABLET PO SCH ×2 (08:40→20:23)
[2017-06-30] MEDS: PANTOPRAZOLE SODIUM 40 MG DR TABLET PO SCH (08:40)
[2017-06-30] MEDS: LEVOFLOXACIN 250 MG TABLET PO SCH (08:40)
[2017-06-30] MEDS: APIXABAN 2.5 MG TABLET PO SCH ×2 (08:40→20:24)
[2017-06-30] MEDS: CLOTRIMAZOLE 1% 15 GM CREAM TP SCH ×2 (08:41→20:24)
[2017-06-30] MEDS: MULTIVITAMINS WITH MINERALS, THERAPEUTIC TABLET PO SCH (08:41)
[2017-06-30] MEDS: EPOETIN ALFA 10,000 UNITS/ML VIAL SQ SCH (08:42)
[2017-06-30] MEDS ORDERED: HEPARIN SODIUM,PORCINE 1,000 UNITS/ML VIAL IVP ONE ×3 (16:15→19:36)
[2017-06-30] MEDS ORDERED: MANNITOL 25%-12.5 GM/50 ML VIAL IVP PRN (16:30)
[2017-06-30 18:58] VITALS: BP 129/83
[2017-06-30 19:00] VITALS: BP 136/83
[2017-06-30 20:10] VITALS: BP 129/87
[2017-06-30] MEDS: SENNA 187 MG TABLET PO SCH ×2 (20:23→20:36)
[2017-06-30] MEDS: TAMSULOSIN HCL 0.4 MG CAPSULE PO SCH (20:24)
[2017-06-30] MEDS ORDERED: IPRATROPIUM BROMIDE 0.5 MG/2.5 ML NEB SOLUTION NEB ONE (20:29)
[2017-06-30] MEDS ORDERED: ALBUTEROL SULFATE 2.5 MG/0.5 ML NEB SOLUTION NEB ONE (20:29)
[2017-07-01] VITALS: BP 121/74
[2017-07-01] MEDS: ALBUTEROL SULFATE 2.5 MG/0.5 ML NEB SOLUTION NEB SCH ×5 (06:26→23:49)
[2017-07-01] MEDS: IPRATROPIUM BROMIDE 0.5 MG/2.5 ML NEB SOLUTION NEB SCH ×5 (06:26→23:49)
[2017-07-01 07:54] VITALS: BP 132/84
[2017-07-01] MEDS: CARVEDILOL 6.25 MG TABLET PO SCH ×2 (08:04→21:28)
[2017-07-01] MEDS: PANTOPRAZOLE SODIUM 40 MG DR TABLET PO SCH (08:04)
[2017-07-01] MEDS: APIXABAN 2.5 MG TABLET PO SCH ×2 (08:04→21:29)
[2017-07-01] MEDS: MULTIVITAMINS WITH MINERALS, THERAPEUTIC TABLET PO SCH (08:04)
[2017-07-01] MEDS: FUROSEMIDE 40 MG TABLET PO SCH (08:05)
[2017-07-01] MEDS: LEVOFLOXACIN 250 MG TABLET PO SCH (08:05)
[2017-07-01] MEDS: LACTOBACILLUS ACIDOPHILUS/BULGARICUS TABLET PO SCH ×2 (08:05→21:28)
[2017-07-01] MEDS: CLOTRIMAZOLE 1% 15 GM CREAM TP SCH ×2 (08:05→21:29)
[2017-07-01 15:19] VITALS: BP 99/62
[2017-07-01] MEDS: OXYGEN THERAPY IH SCH (20:00)
[2017-07-01] MEDS: SENNA 187 MG TABLET PO SCH (21:00)
[2017-07-01 21:26] VITALS: BP 120/83
[2017-07-01] MEDS: TAMSULOSIN HCL 0.4 MG CAPSULE PO SCH (21:29)
[2017-07-01 23:32] VITALS: BP 115/77
[2017-07-02 07:08] VITALS: BP 120/81
[2017-07-02] MEDS: OXYGEN THERAPY IH SCH ×2 (08:00→18:52)
[2017-07-02] MEDS: COLD CREAM, SKIN EMOLLIENT 340 GM JAR TP SCH (08:01)
[2017-07-02] MEDS: EPOETIN ALFA 10,000 UNITS/ML VIAL SQ SCH (08:01)
[2017-07-02] MEDS: APIXABAN 2.5 MG TABLET PO SCH ×2 (08:01→20:42)
[2017-07-02] MEDS: CLOTRIMAZOLE 1% 15 GM CREAM TP SCH ×2 (08:01→20:43)
[2017-07-02] MEDS: MULTIVITAMINS WITH MINERALS, THERAPEUTIC TABLET PO SCH (08:01)
[2017-07-02] MEDS: CARVEDILOL 6.25 MG TABLET PO SCH ×2 (08:02→20:42)
[2017-07-02] MEDS: LACTOBACILLUS ACIDOPHILUS/BULGARICUS TABLET PO SCH ×2 (08:02→20:42)
[2017-07-02] MEDS: LEVOFLOXACIN 250 MG TABLET PO SCH (08:02)
[2017-07-02] MEDS: PANTOPRAZOLE SODIUM 40 MG DR TABLET PO SCH (08:02)
[2017-07-02] MEDS: ALBUTEROL SULFATE 2.5 MG/0.5 ML NEB SOLUTION NEB SCH ×5 (08:37→22:41)
[2017-07-02] MEDS: IPRATROPIUM BROMIDE 0.5 MG/2.5 ML NEB SOLUTION NEB SCH ×5 (08:37→22:41)
[2017-07-02] MEDS ORDERED: SODIUM CHLORIDE 0.9% 1,000 ML IV ONE (12:55)
[2017-07-02] MEDS ORDERED: HEPARIN SODIUM,PORCINE 1,000 UNITS/ML VIAL IVP ONE (17:46)
[2017-07-02 18:11] VITALS: BP 129/76
[2017-07-02] MEDS: SENNA 187 MG TABLET PO SCH (20:42)
[2017-07-02] MEDS: TAMSULOSIN HCL 0.4 MG CAPSULE PO SCH (20:42)
[2017-07-02 20:44] VITALS: BP 123/71
[2017-07-02 23:13] VITALS: BP 128/74
[2017-07-03 07:09] VITALS: BP 120/81
[2017-07-03] MEDS: OXYGEN THERAPY IH SCH ×3 (08:00→20:43)
[2017-07-03] MEDS: CARVEDILOL 6.25 MG TABLET PO SCH ×2 (08:14→20:45)
[2017-07-03] MEDS: APIXABAN 2.5 MG TABLET PO SCH ×2 (08:14→20:45)
[2017-07-03] MEDS: MULTIVITAMINS WITH MINERALS, THERAPEUTIC TABLET PO SCH (08:14)
[2017-07-03] MEDS: PANTOPRAZOLE SODIUM 40 MG DR TABLET PO SCH (08:14)
[2017-07-03] MEDS: LACTOBACILLUS ACIDOPHILUS/BULGARICUS TABLET PO SCH ×2 (08:14→20:45)
[2017-07-03] MEDS: LEVOFLOXACIN 250 MG TABLET PO SCH (08:14)
[2017-07-03] MEDS: CLOTRIMAZOLE 1% 15 GM CREAM TP SCH ×2 (08:15→20:46)
[2017-07-03] MEDS: IPRATROPIUM BROMIDE 0.5 MG/2.5 ML NEB SOLUTION NEB SCH ×5 (08:45→23:16)
[2017-07-03] MEDS: ALBUTEROL SULFATE 2.5 MG/0.5 ML NEB SOLUTION NEB SCH ×5 (08:45→23:16)
[2017-07-03] MEDS: COLD CREAM, SKIN EMOLLIENT 340 GM JAR TP SCH (12:26)
[2017-07-03 15:53] VITALS: BP 112/78
[2017-07-03 20:40] VITALS: BP 118/78
[2017-07-03] MEDS: SENNA 187 MG TABLET PO SCH (20:45)
[2017-07-03] MEDS: TAMSULOSIN HCL 0.4 MG CAPSULE PO SCH (20:45)
[2017-07-03 23:15] VITALS: BP 119/81
[2017-07-04 07:20] VITALS: BP 114/75
[2017-07-04] MEDS: IPRATROPIUM BROMIDE 0.5 MG/2.5 ML NEB SOLUTION NEB SCH ×5 (07:26→23:00)
[2017-07-04] MEDS: ALBUTEROL SULFATE 2.5 MG/0.5 ML NEB SOLUTION NEB SCH ×5 (07:27→23:00)
[2017-07-04] MEDS: OXYGEN THERAPY IH SCH ×2 (08:00→19:03)
[2017-07-04] MEDS: MULTIVITAMINS WITH MINERALS, THERAPEUTIC TABLET PO SCH (09:24)
[2017-07-04] MEDS: LEVOFLOXACIN 250 MG TABLET PO SCH (09:25)
[2017-07-04] MEDS: APIXABAN 2.5 MG TABLET PO SCH ×2 (09:25→20:28)
[2017-07-04] MEDS: PANTOPRAZOLE SODIUM 40 MG DR TABLET PO SCH (09:25)
[2017-07-04] MEDS: LACTOBACILLUS ACIDOPHILUS/BULGARICUS TABLET PO SCH ×2 (09:25→20:28)
[2017-07-04] MEDS: CARVEDILOL 6.25 MG TABLET PO SCH ×2 (09:25→20:28)
[2017-07-04] MEDS: FUROSEMIDE 40 MG TABLET PO SCH (09:26)
[2017-07-04] MEDS: COLD CREAM, SKIN EMOLLIENT 340 GM JAR TP SCH (09:27)
[2017-07-04] MEDS: CLOTRIMAZOLE 1% 15 GM CREAM TP SCH ×2 (09:28→20:28)
[2017-07-04 15:53] VITALS: BP 120/65
[2017-07-04] MEDS: SENNA 187 MG TABLET PO SCH (20:28)
[2017-07-04] MEDS: TAMSULOSIN HCL 0.4 MG CAPSULE PO SCH (20:28)
[2017-07-04 20:32] VITALS: BP 139/87
[2017-07-04 23:30] VITALS: BP 125/74
[2017-07-05 07:32] LABS: BASOPHILS % (AUTO) 0.5 % (0.0-2.0); EOSINOPHILS % (AUTO) 3.8 % (1.0-6.0); HEMATOCRIT 28.9 % (41-53); HEMOGLOBIN 9.3 g/dL (13.5-17.5); LYMPHOCYTES # (AUTO) 0.8 K/uL (1.0-4.8); LYMPHOCYTES % (AUTO) 17.5 % (22.0-44.0); MEAN CORPUSCULAR HEMOGLOBIN 29.7 pg (26.0-34.0); MEAN CORPUSCULAR HGB CONC 32.3 G/dL (31.0-37.0); MEAN CORPUSCULAR VOLUME 92 fL (80-100); MONOCYTES # (AUTO) 0.4 K/uL (0.1-1.0); MONOCYTES % (AUTO) 9.2 % (2.0-9.0); PLATELET COUNT (AUTO) 78 K/uL (150-450); RED BLOOD CELL COUNT(AUTO) 3.14 MIL/uL (4.50-5.90); RED CELL DISTRIBUTION WIDTH 24.8 % (11.5-14.5); WHITE BLOOD COUNT (AUTO) 4.4 K/uL (4.5-11.0)
[2017-07-05 07:45] VITALS: BP 130/70
[2017-07-05 07:52] LABS: CALCIUM, TOTAL 9.2 mg/dL (8.8-10.5); CREATININE 5.33 mg/dL (0.60-1.30); MAGNESIUM 1.4 mg/dL (1.80-2.40); PHOSPHORUS 2.3 mg/dL (2.5-4.9); POTASSIUM 4.3 mmol/L (3.5-5.1)
[2017-07-05] MEDS: OXYGEN THERAPY IH SCH ×2 (08:00→20:00)
[2017-07-05] MEDS: FUROSEMIDE 40 MG TABLET PO SCH (08:10)
[2017-07-05] MEDS: PANTOPRAZOLE SODIUM 40 MG DR TABLET PO SCH (08:10)
[2017-07-05] MEDS: APIXABAN 2.5 MG TABLET PO SCH ×2 (08:10→20:46)
[2017-07-05] MEDS: LACTOBACILLUS ACIDOPHILUS/BULGARICUS TABLET PO SCH ×2 (08:10→20:46)
[2017-07-05] MEDS: MULTIVITAMINS WITH MINERALS, THERAPEUTIC TABLET PO SCH (08:11)
[2017-07-05] MEDS: CARVEDILOL 6.25 MG TABLET PO SCH ×2 (08:11→20:46)
[2017-07-05] MEDS: CLOTRIMAZOLE 1% 15 GM CREAM TP SCH ×2 (08:11→20:48)
[2017-07-05] MEDS: COLD CREAM, SKIN EMOLLIENT 340 GM JAR TP SCH (08:11)
[2017-07-05] MEDS: EPOETIN ALFA 10,000 UNITS/ML VIAL SQ SCH (08:12)
[2017-07-05] MEDS: ALBUTEROL SULFATE 2.5 MG/0.5 ML NEB SOLUTION NEB SCH ×4 (08:25→20:04)
[2017-07-05] MEDS: IPRATROPIUM BROMIDE 0.5 MG/2.5 ML NEB SOLUTION NEB SCH ×4 (08:25→20:03)
[2017-07-05 10:09] LABS: RBC MORPHOLOGY COMMENT ABNORMAL RBC MORPH
[2017-07-05] MEDS ORDERED: HEPARIN SODIUM,PORCINE 1,000 UNITS/ML VIAL IVP ONE (13:42)
[2017-07-05 17:00] VITALS: BP 131/85
[2017-07-05 20:45] VITALS: BP 139/69
[2017-07-05] MEDS: SENNA 187 MG TABLET PO SCH ×2 (20:46→20:51)
[2017-07-05] MEDS: TAMSULOSIN HCL 0.4 MG CAPSULE PO SCH (20:46)
[2017-07-05 23:52] VITALS: BP 124/74
[2017-07-06 07:11] VITALS: BP 127/79
[2017-07-06] MEDS: IPRATROPIUM BROMIDE 0.5 MG/2.5 ML NEB SOLUTION NEB SCH ×2 (07:23→11:14)
[2017-07-06] MEDS: ALBUTEROL SULFATE 2.5 MG/0.5 ML NEB SOLUTION NEB SCH ×2 (07:23→11:14)
[2017-07-06] MEDS: APIXABAN 2.5 MG TABLET PO SCH (08:48)
[2017-07-06] MEDS: CARVEDILOL 6.25 MG TABLET PO SCH (08:48)
[2017-07-06] MEDS: PANTOPRAZOLE SODIUM 40 MG DR TABLET PO SCH (08:48)
[2017-07-06] MEDS: MULTIVITAMINS WITH MINERALS, THERAPEUTIC TABLET PO SCH (08:48)
[2017-07-06] MEDS: LACTOBACILLUS ACIDOPHILUS/BULGARICUS TABLET PO SCH (08:48)
[2017-07-06] MEDS: FUROSEMIDE 40 MG TABLET PO SCH (08:48)
[2017-07-06] MEDS: COLD CREAM, SKIN EMOLLIENT 340 GM JAR TP SCH (08:49)
[2017-07-06] MEDS: CLOTRIMAZOLE 1% 15 GM CREAM TP SCH (08:49)
== END 2017-07-06 13:43 | disposition home health service (06) | DRG 548 ==
LOC: 2WR 17:00
PROVIDERS: ADMIT Physical Medicine & Rehabilitation; ATTEND Physical Medicine & Rehabilitation
PROC: 5A1D60Z (ICD-10-PCS; principal; 2017-06-19)
DX: M00.061 Staphylococcal arthritis, right knee (principal); E43 Unspecified severe protein-calorie malnutrition; J69.0 Pneumonitis due to inhalation of food and vomit; G93.41 Metabolic encephalopathy; I13.2 Hypertensive heart and chronic kidney disease with heart failure and with stage 5 chronic kidney disease, or end stage renal disease; N17.9 Acute kidney failure, unspecified; R13.12 Dysphagia, oropharyngeal phase; N18.6 End stage renal disease; L03.115 Cellulitis of right lower limb; N30.90 Cystitis, unspecified without hematuria; I48.0 Paroxysmal atrial fibrillation; J44.9 Chronic obstructive pulmonary disease, unspecified; B96.5 Pseudomonas (aeruginosa) (mallei) (pseudomallei) as the cause of diseases classified elsewhere; D63.8 Anemia in other chronic diseases classified elsewhere; E78.00 Pure hypercholesterolemia, unspecified; E78.5 Hyperlipidemia, unspecified; I08.1 Rheumatic disorders of both mitral and tricuspid valves; I25.10 Atherosclerotic heart disease of native coronary artery without angina pectoris; I50.9 Heart failure, unspecified; K57.30 Diverticulosis of large intestine without perforation or abscess without bleeding; K21.9 Gastro-esophageal reflux disease without esophagitis; K80.20 Calculus of gallbladder without cholecystitis without obstruction; N28.1 Cyst of kidney, acquired; N40.0 Benign prostatic hyperplasia without lower urinary tract symptoms; N43.3 Hydrocele, unspecified; N50.89 Other specified disorders of the male genital organs; R62.7 Adult failure to thrive; B95.61 Methicillin susceptible Staphylococcus aureus infection as the cause of diseases classified elsewhere; F03.90 Unspecified dementia, unspecified severity, without behavioral disturbance, psychotic disturbance, mood disturbance, and anxiety; R31.0 Gross hematuria; R53.81 Other malaise; E83.42 Hypomagnesemia; Z99.2 Dependence on renal dialysis; Z68.28 Body mass index [BMI] 28.0-28.9, adult
CPT/HCPCS: 74230; 76770; 83735; 84100; 87086; 90935; 92507; 92508; 92526; 92610; 92611; 94640; 97110; 97112; 97116; 97163; 97167; 97530; 97535; 99366; J0713; J0885; J1644; J2543; J3370; J7030; J7060

== ENCOUNTER 2020-01-29 12:17 | Emergency (ER) | payer MEDICARE, OTHER ==
[~2020-01-29] VITALS: Ht 170.2 cm; Wt 81.8 kg
[~2020-01-29 12:17] MED LIST changes: -ACET-784 PO; -AUD NEB; -BISA10S PR; -EPOE10003 SQ; -HYDR10TA31 PO; -IPRNEB IH; -LOSA50TA37 PO; -ONDA4 IV; -OXYC-38 PO; -WARF10TA23 PO; -ZOSY225FZ IV
[2020-01-29] MEDS ORDERED: SEVE800T17 PO (12:27)
[2020-01-29 15:08] LABS: BASOPHILS % (AUTO) 0.7 % (0.0-2.0); EOSINOPHILS % (AUTO) 0.3 % (1.0-6.0); HEMATOCRIT 35.9 % (41-53); LYMPHOCYTES # (AUTO) 0.6 K/uL (1.0-4.8); LYMPHOCYTES % (AUTO) 12.6 % (22.0-44.0); MEAN CORPUSCULAR HEMOGLOBIN 34.7 pg (26.0-34.0); MEAN CORPUSCULAR HGB CONC 33.4 G/dL (31.0-37.0); MEAN CORPUSCULAR VOLUME 104 fL (80-100); MONOCYTES # (AUTO) 0.4 K/uL (0.1-1.0); NEUTROPHILS # (AUTO) 3.7 K/uL (1.8-7.7); NEUTROPHILS % (AUTO) 77.4 % (40.0-70.0); PLATELET COUNT (AUTO) 114 K/uL (150-450); RED BLOOD CELL COUNT(AUTO) 3.46 MIL/uL (4.50-5.90); RED CELL DISTRIBUTION WIDTH 15.2 % (11.5-14.5)
[2020-01-29 15:19] LABS: CALCIUM, TOTAL 9.5 mg/dL (8.8-10.5); CREATININE 4.16 mg/dL (0.60-1.30); POTASSIUM 3.7 mmol/L (3.5-5.1)
[2020-01-29 15:43] LABS: ALBUMIN 3.7 g/dL (3.4-5.0); BILIRUBIN,TOTAL 1.7 mg/dL (0.1-1.0)
[2020-01-29 16:31] LABS: INR 1.1 (0.9-1.1); PROTHROMBIN TIME 11.5 SEC (9.4-11.6)
[2020-01-29 17:06] VITALS: BP 158/89
== END 2020-01-29 17:04 | disposition left against medical advice (07) ==
LOC: EMS 12:18
DX: I13.2 Hypertensive heart and chronic kidney disease with heart failure and with stage 5 chronic kidney disease, or end stage renal disease (principal); N18.6 End stage renal disease; I50.9 Heart failure, unspecified; J90 Pleural effusion, not elsewhere classified; E78.00 Pure hypercholesterolemia, unspecified; I48.91 Unspecified atrial fibrillation; I25.10 Atherosclerotic heart disease of native coronary artery without angina pectoris; Z79.01 Long term (current) use of anticoagulants; Z99.2 Dependence on renal dialysis; Z79.899 Other long term (current) drug therapy
CPT/HCPCS: 87040; 93005

== ENCOUNTER 2020-01-30 08:33 | Emergency (ER) | payer MEDICARE, OTHER ==
[~2020-01-30] VITALS: Ht 167.6 cm; Wt 79.0 kg
[~2020-01-30 08:33] MED LIST changes: +SEVE800T17 PO
[2020-01-30 09:17] LABS: BASOPHILS % (AUTO) 1.4 % (0.0-2.0); EOSINOPHILS % (AUTO) 0.7 % (1.0-6.0); HEMATOCRIT 34.4 % (41-53); HEMOGLOBIN 11.4 g/dL (13.5-17.5); LYMPHOCYTES # (AUTO) 0.7 K/uL (1.0-4.8); LYMPHOCYTES % (AUTO) 13.5 % (22.0-44.0); MEAN CORPUSCULAR HEMOGLOBIN 34.4 pg (26.0-34.0); MEAN CORPUSCULAR HGB CONC 33.1 G/dL (31.0-37.0); MEAN CORPUSCULAR VOLUME 104 fL (80-100); MONOCYTES # (AUTO) 0.5 K/uL (0.1-1.0); MONOCYTES % (AUTO) 9.1 % (2.0-9.0); NEUTROPHILS # (AUTO) 4.1 K/uL (1.8-7.7); NEUTROPHILS % (AUTO) 75.3 % (40.0-70.0); PLATELET COUNT (AUTO) 121 K/uL (150-450); RED BLOOD CELL COUNT(AUTO) 3.32 MIL/uL (4.50-5.90); RED CELL DISTRIBUTION WIDTH 15.4 % (11.5-14.5)
[2020-01-30 09:31] LABS: CALCIUM, TOTAL 9.6 mg/dL (8.8-10.5); CREATININE 4.94 mg/dL (0.60-1.30); POTASSIUM 3.8 mmol/L (3.5-5.1)
[2020-01-30 09:37] LABS: ALBUMIN 3.7 g/dL (3.4-5.0); MAGNESIUM 2.1 mg/dL (1.80-2.40)
[2020-01-30 10:33] VITALS: BP 137/96
== END 2020-01-30 11:49 | disposition left against medical advice (07) ==
LOC: EMS 08:34
DX: I12.0 Hypertensive chronic kidney disease with stage 5 chronic kidney disease or end stage renal disease (principal); N18.6 End stage renal disease; I25.10 Atherosclerotic heart disease of native coronary artery without angina pectoris; I48.91 Unspecified atrial fibrillation; Z99.2 Dependence on renal dialysis; Z79.899 Other long term (current) drug therapy; Z79.01 Long term (current) use of anticoagulants; Z98.890 Other specified postprocedural states
CPT/HCPCS: 83735

== ENCOUNTER 2020-06-25 23:07 | Emergency (ER) | payer MEDICARE, OTHER ==
[~2020-06-25] VITALS: Ht 170.2 cm; Wt 75.5 kg
[~2020-06-25 23:07] MED LIST changes: +PANT-31 PO; -PANT40TA25 PO
[2020-06-26 01:47] LABS: BASOPHILS % (AUTO) 0.7 % (0.0-2.0); EOSINOPHILS % (AUTO) 0.9 % (1.0-6.0); HEMOGLOBIN 8.7 g/dL (13.5-17.5); LYMPHOCYTES # (AUTO) 0.7 K/uL (1.0-4.8); LYMPHOCYTES % (AUTO) 14.1 % (22.0-44.0); MEAN CORPUSCULAR HEMOGLOBIN 34.9 pg (26.0-34.0); MEAN CORPUSCULAR HGB CONC 33.5 G/dL (31.0-37.0); MEAN CORPUSCULAR VOLUME 104 fL (80-100); MONOCYTES # (AUTO) 0.4 K/uL (0.1-1.0); MONOCYTES % (AUTO) 7.3 % (2.0-9.0); PLATELET COUNT (AUTO) 110 K/uL (150-450); RED CELL DISTRIBUTION WIDTH 15.8 % (11.5-14.5)
[2020-06-26 01:55] LABS: CALCIUM, TOTAL 9.3 mg/dL (8.8-10.5); CREATININE 2.93 mg/dL (0.60-1.30); POTASSIUM 3.9 mmol/L (3.5-5.1)
[2020-06-26 01:59] LABS: INR 1.1 (0.9-1.1); PROTHROMBIN TIME 11.9 SEC (9.4-11.6)
[2020-06-26 02:01] LABS: ALBUMIN 3.3 g/dL (3.4-5.0); BILIRUBIN,TOTAL 1.9 mg/dL (0.1-1.0); TOTAL PROTEIN, SERUM 6.7 g/dL (6.4-8.2)
[2020-06-26 02:07] VITALS: BP 109/52
== END 2020-06-26 02:38 | disposition home or self-care (01) ==
LOC: EMS 23:07
DX: T82.838A Hemorrhage due to vascular prosthetic devices, implants and grafts, initial encounter (principal); D64.89 Other specified anemias; I13.11 Hypertensive heart and chronic kidney disease without heart failure, with stage 5 chronic kidney disease, or end stage renal disease; I48.91 Unspecified atrial fibrillation; I25.10 Atherosclerotic heart disease of native coronary artery without angina pectoris; N18.6 End stage renal disease; Z99.2 Dependence on renal dialysis; Y82.8 Other medical devices associated with adverse incidents; Y92.89 Other specified places as the place of occurrence of the external cause

== ENCOUNTER 2020-10-13 21:40 | Emergency (ER) | payer MEDICARE, OTHER ==
[~2020-10-13] VITALS: Ht 167.6 cm; Wt 74.5 kg
[2020-10-14 01:02] VITALS: BP 121/72
== END 2020-10-14 01:05 | disposition home or self-care (01) ==
LOC: EMS 21:40
DX: T82.838A Hemorrhage due to vascular prosthetic devices, implants and grafts, initial encounter (principal); T80.90XA Unspecified complication following infusion and therapeutic injection, initial encounter; I10 Essential (primary) hypertension; I48.91 Unspecified atrial fibrillation; E78.00 Pure hypercholesterolemia, unspecified; N28.9 Disorder of kidney and ureter, unspecified; Z79.899 Other long term (current) drug therapy; Z79.4 Long term (current) use of insulin; X58.XXXA Exposure to other specified factors, initial encounter
CPT/HCPCS: Z7502

== ENCOUNTER → 2021-01-07 | Outpatient (CLI) | payer MEDICARE, OTHER ==
[2021-01-07 10:47] LABS: BASOPHILS % (AUTO) 1.1 % (0.0-2.0); BILIRUBIN,TOTAL 1.3 mg/dL (0.1-1.0); CALCIUM, TOTAL 9.9 mg/dL (8.8-10.5); CHOL/HDL RATIO 1.9 (4.2-7.3); CREATININE 6.93 mg/dL (0.60-1.30); EOSINOPHILS % (AUTO) 1.7 % (1.0-6.0); HEMATOCRIT 41.1 % (41-53); LYMPHOCYTES % (AUTO) 24.5 % (22.0-44.0); MEAN CORPUSCULAR HEMOGLOBIN 35.6 pg (26.0-34.0); MEAN CORPUSCULAR VOLUME 105 fL (80-100); MONOCYTES # (AUTO) 0.4 K/uL (0.1-1.0); MONOCYTES % (AUTO) 10.5 % (2.0-9.0); NEUTROPHILS # (AUTO) 2.6 K/uL (1.8-7.7); NEUTROPHILS % (AUTO) 62.2 % (40.0-70.0); PLATELET COUNT (AUTO) 208 K/uL (150-450); POTASSIUM 4.4 mmol/L (3.5-5.1); RED BLOOD CELL COUNT(AUTO) 3.93 MIL/uL (4.50-5.90); RED CELL DISTRIBUTION WIDTH 14.2 % (11.5-14.5); TOTAL PROTEIN, SERUM 8.4 g/dL (6.4-8.2)
== END | disposition home or self-care (01) ==
LOC: LABPV 09:25
PROVIDERS: ATTEND Nurse Practitioner
DX: I12.0 Hypertensive chronic kidney disease with stage 5 chronic kidney disease or end stage renal disease (principal); N18.6 End stage renal disease

== ENCOUNTER 2022-02-15 09:39 | Emergency (ER) | payer MEDICARE, OTHER ==
[~2022-02-15] VITALS: Ht 160 cm; Wt 73.0 kg
[2022-02-15] MEDS ORDERED: KETOROLAC TROMETHAMINE 60 MG/2 ML VIAL IM ONE (11:15)
[2022-02-15 13:30] VITALS: BP 121/75
== END 2022-02-15 17:20 | disposition home or self-care (01) ==
LOC: EMS 09:39
DX: S30.0XXA Contusion of lower back and pelvis, initial encounter (principal); F17.210 Nicotine dependence, cigarettes, uncomplicated; I10 Essential (primary) hypertension; Z79.899 Other long term (current) drug therapy; W06.XXXA Fall from bed, initial encounter; Y93.89 Activity, other specified; Y92.89 Other specified places as the place of occurrence of the external cause; Y99.8 Other external cause status
CPT/HCPCS: 96372; 99283; J1885

== ENCOUNTER 2022-02-17 11:19 | Emergency (ER) | payer MEDICARE, OTHER ==
[~2022-02-17] VITALS: Ht 170.2 cm; Wt 74.1 kg
[2022-02-17] MEDS ORDERED: FAMOTIDINE 10 MG/ML 2 ML VIAL IVP ONE (12:15)
[2022-02-17 12:35] LABS: BASOPHILS % (AUTO) 0.1 % (0.0-2.0); EOSINOPHILS % (AUTO) 0 % (1.0-6.0); HEMATOCRIT 36.3 % (41-53); HEMOGLOBIN 12.3 g/dL (13.5-17.5); LYMPHOCYTES # (AUTO) 0.7 K/uL (1.0-4.8); LYMPHOCYTES % (AUTO) 6.5 % (22.0-44.0); MEAN CORPUSCULAR HEMOGLOBIN 36.3 pg (26.0-34.0); MEAN CORPUSCULAR HGB CONC 33.8 G/dL (31.0-37.0); MEAN CORPUSCULAR VOLUME 108 fL (80-100); MONOCYTES # (AUTO) 0.6 K/uL (0.1-1.0); MONOCYTES % (AUTO) 5.5 % (2.0-9.0); NEUTROPHILS # (AUTO) 9.1 K/uL (1.8-7.7); PLATELET COUNT (AUTO) 237 K/uL (150-450); RED BLOOD CELL COUNT(AUTO) 3.38 MIL/uL (4.50-5.90); RED CELL DISTRIBUTION WIDTH 15.5 % (11.5-14.5)
[2022-02-17 12:36] LABS: NEUTROPHILS % (AUTO) 87.9 % (40.0-70.0)
[2022-02-17] MEDS ORDERED: ONDANSETRON HCL 4 MG/2 ML VIAL IVP ONE (12:45)
[2022-02-17 12:51] LABS: CALCIUM, TOTAL 9.5 mg/dL (8.8-10.5); CREATININE 5.17 mg/dL (0.60-1.30); POTASSIUM 4.7 mmol/L (3.5-5.1)
[2022-02-17 12:54] LABS: ALBUMIN 3.9 g/dL (3.4-5.0); TOTAL PROTEIN, SERUM 8.7 g/dL (6.4-8.2)
[2022-02-17] MEDS ORDERED: FAMO20 PO (13:26)
[2022-02-17 13:40] VITALS: BP 122/70
== END 2022-02-17 13:50 | disposition home or self-care (01) ==
LOC: EMS 11:27
DX: K21.9 Gastro-esophageal reflux disease without esophagitis (principal); I12.0 Hypertensive chronic kidney disease with stage 5 chronic kidney disease or end stage renal disease; N18.6 End stage renal disease; F17.210 Nicotine dependence, cigarettes, uncomplicated; Z99.2 Dependence on renal dialysis; Z79.899 Other long term (current) drug therapy
CPT/HCPCS: 36415; 71045; 80053; 83690; 84484; 85025; 93005; 96374; 96375; 99285; J2405; J3490

== ENCOUNTER 2024-01-22 08:08 | Emergency (ER) | payer MEDICARE, OTHER ==
[~2024-01-22] VITALS: Ht 165.1 cm; Wt 81.8 kg
[~2024-01-22 08:08] MED LIST changes: +FAMO20 PO; -SEVE800T17 PO; +SEVE800T38 PO
[2024-01-22 08:12] VITALS: BP 111/67; PULSE 103; RESP 20; TEMP 97.8
[2024-01-22] MEDS ORDERED: APIX2.5T PO (08:23)
[2024-01-22] MEDS ORDERED: OMEP20CA12 PO (08:23)
[2024-01-22] MEDS ORDERED: FURO80TA3 PO (08:23)
[2024-01-22 08:46] LABS: BASOPHILS % (AUTO) 1.2 % (0.0-2.0); EOSINOPHILS % (AUTO) 1.5 % (1.0-6.0); HEMATOCRIT 40.6 % (41-53); HEMOGLOBIN 13.7 g/dL (13.5-17.5); LYMPHOCYTES # (AUTO) 1.5 K/uL (1.0-4.8); LYMPHOCYTES % (AUTO) 19.6 % (22.0-44.0); MEAN CORPUSCULAR HEMOGLOBIN 35.4 pg (26.0-34.0); MEAN CORPUSCULAR HGB CONC 33.8 G/dL (31.0-37.0); MEAN CORPUSCULAR VOLUME 105 fL (80-100); MONOCYTES # (AUTO) 0.7 K/uL (0.1-1.0); MONOCYTES % (AUTO) 9.6 % (2.0-9.0); NEUTROPHILS # (AUTO) 5.2 K/uL (1.8-7.7); NEUTROPHILS % (AUTO) 68.1 % (40.0-70.0); PLATELET COUNT (AUTO) 363 K/uL (150-450); RED BLOOD CELL COUNT(AUTO) 3.88 MIL/uL (4.50-5.90); RED CELL DISTRIBUTION WIDTH 15.5 % (11.5-14.5); WHITE BLOOD COUNT (AUTO) 7.6 K/uL (4.5-11.0)
[2024-01-22 08:59] LABS: PROTHROMBIN TIME 10.4 SEC (9.4-11.6)
[2024-01-22 09:04] LABS: TROPONIN I-HIGH SENSITIVITY 37 ng/L (<76)
[2024-01-22 09:07] LABS: RBC MORPHOLOGY COMMENT ABNORMAL RBC MORPH
[2024-01-22 09:20] LABS: CALCIUM, TOTAL 9.4 mg/dL (8.8-10.5); CREATININE 8.4 mg/dL (0.60-1.30); POTASSIUM 4.2 mmol/L (3.5-5.1)
[2024-01-22 09:26] LABS: ALBUMIN 3.4 g/dL (3.4-5.0); BILIRUBIN,TOTAL 1.2 mg/dL (0.1-1.0); TOTAL PROTEIN, SERUM 8.4 g/dL (6.4-8.2)
[2024-01-22] MEDS ORDERED: AMOX500C2 PO (09:36)
[2024-01-22] MEDS ORDERED: ACET-3560 PO (09:37)
[2024-01-22 09:38] LABS: COVID AG,FIA SOURCE NASAL SWAB
[2024-01-22 10:14] LABS: SARS-COV2 (COVID) ANTIGEN,FIA Negative (Negative)
[2024-01-22 10:15] LABS: INFLUENZA TYPE A NEGATIVE FOR TYPE A (NEGATIVE); INFLUENZA TYPE B NEGATIVE FOR TYPE B (NEGATIVE)
[2024-01-22 10:16] LABS: RESPIRATORY SYNCYTIAL VIRS,FIA NEGATIVE (Negative)
[2024-01-22 10:18] LABS: RAPID GROUP A STREP NEGATIVE (NEGATIVE)
== END 2024-01-22 10:09 | disposition home or self-care (01) ==
LOC: EMS 08:08
DX: J40 Bronchitis, not specified as acute or chronic (principal); J06.9 Acute upper respiratory infection, unspecified; I10 Essential (primary) hypertension; F17.210 Nicotine dependence, cigarettes, uncomplicated; Z98.890 Other specified postprocedural states; Z20.822 Contact with and (suspected) exposure to COVID-19
CPT/HCPCS: 71045; 80053; 83880; 84484; 85025; 85610; 85730; 87420; 87430; 87804; 93005; 99285; 36415-L1; 36415-TC

== ENCOUNTER 2024-03-31 12:16 | Emergency (ER) | payer MEDICARE, OTHER ==
[~2024-03-31] VITALS: Ht 167.6 cm; Wt 77.7 kg
[~2024-03-31 12:16] MED LIST changes: +ACID1TAB8 PO; +ATOR20TA65 PO; +CALC0.2521 PO; -CARV6 PO; +CINA30 PO; +CLOP75TA60 PO; -DSS100 PO; -FAMO20 PO; -FURO-151 PO; +FURO80TA3 PO; +MIDO5TAB29 PO; -MV-M1TAB2 PO; +OMEP20CA12 PO; -PANT-31 PO; -QUET25TA PO; -SEVE800T38 PO; -TAMS0.4C32 PO
[2024-03-31 12:18] VITALS: BP 109/63; PULSE 90; RESP 16; TEMP 98.2
[2024-03-31] MEDS: LIDOCAINE 1% 10 ML VIAL SQ ONE (14:35)
[2024-03-31] MEDS: BACITRACIN 0.9 GM PACKET OINTMENT TP ONE (14:35)
== END 2024-03-31 15:01 | disposition home or self-care (01) ==
LOC: EMS 12:20
DX: S11.91XA Laceration without foreign body of unspecified part of neck, initial encounter (principal); R58 Hemorrhage, not elsewhere classified; I10 Essential (primary) hypertension; F17.210 Nicotine dependence, cigarettes, uncomplicated; X58.XXXA Exposure to other specified factors, initial encounter; Y93.89 Activity, other specified; Y92.89 Other specified places as the place of occurrence of the external cause; Y99.8 Other external cause status
CPT/HCPCS: 12001; 12011; 96360; 99282; Z7502

== ENCOUNTER 2024-04-03 15:36 | Emergency (ER) | payer MEDICARE, OTHER ==
[~2024-04-03] VITALS: Ht 154.9 cm; Wt 68.0 kg
[2024-04-03 15:42] VITALS: BP 130/67; PULSE 74; RESP 18; TEMP 96.1
== END 2024-04-03 17:31 | disposition home or self-care (01) ==
LOC: EMS 15:39
DX: S01.01XD Laceration without foreign body of scalp, subsequent encounter (principal); I10 Essential (primary) hypertension; F17.210 Nicotine dependence, cigarettes, uncomplicated; Z48.00 Encounter for change or removal of nonsurgical wound dressing; X58.XXXD Exposure to other specified factors, subsequent encounter
CPT/HCPCS: 99281; Z7502

== ENCOUNTER 2024-04-17 16:25 | Inpatient (IN) | payer MEDICARE, OTHER ==
[~2024-04-17] VITALS: Ht 165.1 cm; Wt 75.7 kg
[2024-04-17] MEDS ORDERED: 0.9% SODIUM CHLORIDE 10 ML SYRINGE IVP PRN (20:00)
[2024-04-17 20:21] LABS: BASOPHILS % (AUTO) 0.6 % (0.0-2.0); EOSINOPHILS % (AUTO) 0.9 % (1.0-6.0); HEMATOCRIT 26.7 % (41-53); HEMOGLOBIN 8.6 g/dL (13.5-17.5); LYMPHOCYTES # (AUTO) 0.6 K/uL (1.0-4.8); MEAN CORPUSCULAR HEMOGLOBIN 30.9 pg (26.0-34.0); MEAN CORPUSCULAR HGB CONC 32.2 G/dL (31.0-37.0); MEAN CORPUSCULAR VOLUME 96 fL (80-100); MONOCYTES # (AUTO) 0.6 K/uL (0.1-1.0); MONOCYTES % (AUTO) 10.3 % (2.0-9.0); NEUTROPHILS # (AUTO) 4.9 K/uL (1.8-7.7); NEUTROPHILS % (AUTO) 79.2 % (40.0-70.0); PLATELET COUNT (AUTO) 269 K/uL (150-450); RED BLOOD CELL COUNT(AUTO) 2.77 MIL/uL (4.50-5.90); RED CELL DISTRIBUTION WIDTH 17.5 % (11.5-14.5); WHITE BLOOD COUNT (AUTO) 6.2 K/uL (4.5-11.0)
[2024-04-17 20:35] LABS: INR 1.2 (0.9-1.1); PROTHROMBIN TIME 12.2 SEC (9.4-11.6)
[2024-04-17 20:38] LABS: TROPONIN I-HIGH SENSITIVITY 42 ng/L (<76)
[2024-04-17 20:44] LABS: ANION GAP 9 mmol/L (8-16); CARBON DIOXIDE 31 mmol/L (22-29); CHLORIDE 96 mmol/L (98-107); CREATININE 5.29 mg/dL (0.60-1.30); GLOMERULAR FILTR. RATE CALC 10 mL/min (>60); GLUCOSE,RANDOM 105 mg/dL (70-110); POTASSIUM 4.1 mmol/L (3.5-5.1); SODIUM SERUM 136 mmol/L (136-145); UREA NITROGEN, BLOOD 32 mg/dL (7-18)
[2024-04-17 20:48] LABS: ALANINE AMINOTRANSFERASE 10 U/L (12-78); ALBUMIN 2.7 g/dL (3.4-5.0); ALKALINE PHOSPHATASE 86 U/L (46-116); ASPARTATE AMINOTRANSFERASE 17 U/L (15-37); BILIRUBIN,TOTAL 1.3 mg/dL (0.1-1.0); TOTAL PROTEIN, SERUM 7.4 g/dL (6.4-8.2)
[2024-04-17 20:54] LABS: LACTIC ACID 2.2 mmol/L (0.4-2.0)
[2024-04-17] MEDS ORDERED: VANCOMYCIN 1GM/WATER(PEG/NADA) 200 ML IV ONE (21:30)
[2024-04-17] MEDS: SODIUM CHLORIDE 0.9% 1,500 ML IV ONE (21:44)
[2024-04-17] MEDS: PIPERACILLIN/TAZO 3.375 GM/D5W 50 ML IV ONE (21:46)
[2024-04-17] MEDS: SODIUM CHLORIDE 0.9% 1,150 ML IV ONE (21:53)
[2024-04-17] MEDS ORDERED: MAGNESIUM HYDROXIDE SUSPENSION 30 ML UDCUP PO PRN (22:15)
[2024-04-17] MEDS ORDERED: HYDROCODONE/ACETAMINOPHEN 5-325 MG TABLET PO PRN (22:15)
[2024-04-17] MEDS ORDERED: BISACODYL 10 MG RECTAL RECTAL SUPPOSITORY PR PRN (22:15)
[2024-04-17] MEDS ORDERED: MORPHINE SULFATE 2 MG/ML SYRINGE IVP PRN (22:15)
[2024-04-17] MEDS ORDERED: ACETAMINOPHEN 325 MG TABLET PO PRN (22:15)
[2024-04-17] MEDS ORDERED: ONDANSETRON HCL 4 MG/2 ML VIAL IVP PRN (22:15)
[2024-04-17] MEDS ORDERED: ZOLPIDEM TARTRATE 5 MG TABLET PO PRN (22:15)
[2024-04-17 23:42] VITALS: BP 93/56; PULSE 76; RESP 20; TEMP 97.7
[2024-04-17] MEDS: HEPARIN SODIUM,PORCINE 5,000 UNITS/ML VIAL SQ SCH (23:45)
[2024-04-18] VITALS (12 sets, daily range): BP systolic 100–132; BP diastolic 55–80; PULSE 63–96; RESP 18; TEMP 97.2–97.8
[2024-04-18] MEDS: VANCOMYCIN 1.5 GM/WATER(PEG) 300 ML IV ONE (00:08)
[2024-04-18] MEDS ORDERED: VANCOMYCIN 1GM/WATER(PEG/NADA) 200 ML IV PRN (00:15)
[2024-04-18] MEDS ORDERED: SODIUM CHLORIDE 0.9% 500 ML IV ONE (01:42)
[2024-04-18] MEDS: FUROSEMIDE 80 MG TABLET PO SCH (08:33)
[2024-04-18] MEDS: DOCUSATE SODIUM 100 MG CAPSULE PO SCH (08:33)
[2024-04-18] MEDS: PANTOPRAZOLE SODIUM 40 MG DR TABLET PO SCH (08:33)
[2024-04-18] MEDS: MIDODRINE HCL 5 MG TABLET PO SCH (08:33)
[2024-04-18] MEDS: ATORVASTATIN CALCIUM 20 MG TABLET PO SCH (08:33)
[2024-04-18] MEDS: CALCITRIOL 0.25 MCG CAPSULE PO SCH (08:33)
[2024-04-18] MEDS: ETHYL ALCOHOL 62% ANTISEPTIC NASAL SANITIZER 0.6 ML AMPUL NASAL ONE (17:57)
[2024-04-19 05:38] VITALS: BP 109/61; PULSE 85; RESP 18; TEMP 97.6
[2024-04-19] MEDS ORDERED: SODIUM CHLORIDE 0.9% 1,000 ML ONE (06:09)
[2024-04-19] MEDS ORDERED: SODIUM CL IRRIG SOLN BAG 6,000 ML IRRIG ONE (06:29)
[2024-04-19] MEDS: ETHYL ALCOHOL 62% ANTISEPTIC NASAL SANITIZER 0.6 ML AMPUL NASAL ONE (06:56)
[2024-04-19] MEDS: VANCOMYCIN HCL 1 GM VIAL ONE (08:00)
[2024-04-19] MEDS: BUPIVACAINE HCL/PF 0.25% 30 ML VIAL ONE (08:10)
[2024-04-19] MEDS: LIDOCAINE/PF 1% 30 ML VIAL ONE (08:10)
[2024-04-19 12:00] VITALS: BP 120/53; PULSE 77; RESP 18; TEMP 97.9
[2024-04-19] MEDS ORDERED: MIDAZOLAM HCL 2 MG/2 ML VIAL IVP ONE (12:00)
[2024-04-19] MEDS ORDERED: FentaNYL CITRATE PF 100 MCG/2 ML VIAL IVP ONE (12:00)
[2024-04-19] MEDS: FOLIC ACID/VIT B COMPLEX AND C TABLET PO SCH (12:35)
[2024-04-19 16:36] VITALS: BP 104/74; PULSE 86; RESP 18; TEMP 97.8
[2024-04-19] MEDS: HEPARIN SODIUM,PORCINE 5,000 UNITS/ML VIAL SQ SCH (20:11)
[2024-04-19 20:21] VITALS: BP 95/52; PULSE 92; RESP 18; TEMP 97.5
[2024-04-20] VITALS (14 sets, daily range): BP systolic 87–123; BP diastolic 36–93; PULSE 62–98; RESP 18; TEMP 97.3–98
[2024-04-20 07:22] LABS: CALCIUM, TOTAL 9.7 mg/dL (8.8-10.5); CREATININE 5.41 mg/dL (0.60-1.30); PHOSPHORUS 4.8 mg/dL (2.5-4.9); POTASSIUM 4.7 mmol/L (3.5-5.1); VANCOMYCIN,RANDOM 41.9 mcg/mL (25.0-50.0)
[2024-04-20] MEDS: EPOETIN ALFA 10,000 UNITS/ML 2 ML VIAL SQ SCH (09:08)
[2024-04-20] MEDS ORDERED: SODIUM CHLORIDE 0.9% 2,000 ML ONE (09:39)
[2024-04-21 04:20] VITALS: BP 93/64; PULSE 87; RESP 18; TEMP 97.6
[2024-04-21 06:49] LABS: BASOPHILS % (AUTO) 0.8 % (0.0-2.0); EOSINOPHILS % (AUTO) 1.8 % (1.0-6.0); HEMATOCRIT 25.6 % (41-53); HEMOGLOBIN 8.3 g/dL (13.5-17.5); LYMPHOCYTES # (AUTO) 0.7 K/uL (1.0-4.8); LYMPHOCYTES % (AUTO) 13.2 % (22.0-44.0); MEAN CORPUSCULAR HEMOGLOBIN 30.4 pg (26.0-34.0); MEAN CORPUSCULAR HGB CONC 32.2 G/dL (31.0-37.0); MEAN CORPUSCULAR VOLUME 95 fL (80-100); MONOCYTES # (AUTO) 0.7 K/uL (0.1-1.0); MONOCYTES % (AUTO) 11.9 % (2.0-9.0); NEUTROPHILS % (AUTO) 72.3 % (40.0-70.0); PLATELET COUNT (AUTO) 268 K/uL (150-450); RED BLOOD CELL COUNT(AUTO) 2.71 MIL/uL (4.50-5.90); RED CELL DISTRIBUTION WIDTH 17.3 % (11.5-14.5); WHITE BLOOD COUNT (AUTO) 5.6 K/uL (4.5-11.0)
[2024-04-21 08:23] VITALS: BP 98/38; PULSE 85; RESP 18; TEMP 97.3
[2024-04-21 16:14] VITALS: BP 123/78; PULSE 85; RESP 18; TEMP 97.6
[2024-04-21 20:16] VITALS: BP 99/53; PULSE 80; RESP 18; TEMP 96.9
[2024-04-22 05:23] VITALS: BP 103/63; PULSE 85; RESP 18; TEMP 97.5
[2024-04-22 07:19] LABS: EOSINOPHILS % (AUTO) 1.9 % (1.0-6.0); HEMATOCRIT 26.3 % (41-53); HEMOGLOBIN 8.5 g/dL (13.5-17.5); LYMPHOCYTES # (AUTO) 0.7 K/uL (1.0-4.8); LYMPHOCYTES % (AUTO) 14.1 % (22.0-44.0); MEAN CORPUSCULAR HEMOGLOBIN 30.1 pg (26.0-34.0); MEAN CORPUSCULAR HGB CONC 32.1 G/dL (31.0-37.0); MEAN CORPUSCULAR VOLUME 94 fL (80-100); MONOCYTES # (AUTO) 0.5 K/uL (0.1-1.0); MONOCYTES % (AUTO) 11.7 % (2.0-9.0); NEUTROPHILS # (AUTO) 3.3 K/uL (1.8-7.7); NEUTROPHILS % (AUTO) 71.3 % (40.0-70.0); PLATELET COUNT (AUTO) 282 K/uL (150-450); RED BLOOD CELL COUNT(AUTO) 2.81 MIL/uL (4.50-5.90); RED CELL DISTRIBUTION WIDTH 17.5 % (11.5-14.5); WHITE BLOOD COUNT (AUTO) 4.7 K/uL (4.5-11.0)
[2024-04-22 07:22] VITALS: BP 102/67; PULSE 96; RESP 18; TEMP 97.7
[2024-04-22 07:31] LABS: INR 1.1 (0.9-1.1); PROTHROMBIN TIME 11.6 SEC (9.4-11.6)
[2024-04-22 07:42] LABS: CALCIUM, TOTAL 9.7 mg/dL (8.8-10.5); CREATININE 4.78 mg/dL (0.60-1.30); MAGNESIUM 2.1 mg/dL (1.80-2.40); POTASSIUM 3.6 mmol/L (3.5-5.1)
[2024-04-22] MEDS ORDERED: LIDOCAINE/PF 1% 30 ML VIAL ONE (10:42)
[2024-04-22] MEDS ORDERED: SODIUM BICARBONATE 50 MEQ/50 ML VIAL ONE (10:42)
[2024-04-22] MEDS ORDERED: IODIXANOL 320 MG/ML 100 ML VIAL ONE ×2 (10:42)
[2024-04-22] MEDS ORDERED: HEPARIN SODIUM 1000 UNITS/NS 0 ML ONE (10:42)
[2024-04-22 16:03] VITALS: BP 102/59; PULSE 113; RESP 18; TEMP 97.5
[2024-04-22 16:31] VITALS: PULSE 72
[2024-04-22 19:40] VITALS: BP 108/77; PULSE 67; RESP 18; TEMP 97.4
[2024-04-23] VITALS (13 sets, daily range): BP systolic 95–111; BP diastolic 53–84; PULSE 73–99; RESP 18; TEMP 96.6–97.8
[2024-04-23] MEDS ORDERED: MANNITOL 25%-12.5 GM/50 ML VIAL IVP ONE (16:28)
[2024-04-24] VITALS (16 sets, daily range): BP systolic 94–115; BP diastolic 52–85; PULSE 60–86; RESP 18–19; TEMP 97.6–98.3
[2024-04-24] MEDS ORDERED: LIDOCAINE/PF 1% 30 ML VIAL ONE (11:54)
[2024-04-24] MEDS ORDERED: HEPARIN SODIUM 1000 UNITS/NS 500 ML ONE (11:54)
[2024-04-24] MEDS ORDERED: SODIUM BICARBONATE 50 MEQ/50 ML VIAL ONE (11:54)
[2024-04-24] MEDS ORDERED: IODIXANOL 320 MG/ML 150 ML VIAL ONE (12:32)
[2024-04-24] MEDS ORDERED: FentaNYL CITRATE PF 100 MCG/2 ML VIAL ONE (12:32)
[2024-04-24] MEDS ORDERED: MIDAZOLAM HCL 2 MG/2 ML VIAL ONE (12:32)
[2024-04-24] MEDS ORDERED: IODIXANOL 320 MG/ML 100 ML VIAL ONE ×2 (12:39)
[2024-04-24] MEDS: IODIXANOL 320 MG/ML 100 ML VIAL IARTER ONE (12:59)
[2024-04-24] MEDS: HEPARIN SODIUM,PORCINE 1,000 UNITS/ML 10 ML VIAL IVP ONE ×2 (13:00→13:47)
[2024-04-24] MEDS: LIDOCAINE 1% 30 ML/SOD BICARB 8.4% 4 ML SQ ONE (13:00)
[2024-04-24] MEDS: MIDAZOLAM HCL 2 MG/2 ML VIAL IVP ONE ×2 (13:00→13:17)
[2024-04-24] MEDS: FentaNYL CITRATE PF 100 MCG/2 ML VIAL IVP ONE ×2 (13:01→13:18)
[2024-04-24] MEDS ORDERED: PROTAMINE SULFATE 10 MG/ML 5 ML VIAL ONE (13:43)
[2024-04-24] MEDS: PROTAMINE SULFATE 10 MG/ML 5 ML VIAL IVP ONE (13:50)
[2024-04-24] MEDS ORDERED: CLOPIDOGREL BISULFATE 75 MG TABLET ONE (14:01)
[2024-04-24] MEDS: CLOPIDOGREL BISULFATE 75 MG TABLET PO ONE (14:37)
[2024-04-25] VITALS (12 sets, daily range): BP systolic 92–113; BP diastolic 60–76; PULSE 67–94; RESP 18; TEMP 96.7–98
[2024-04-25] MEDS ORDERED: SODIUM CHLORIDE 0.9% 1,000 ML ONE ×2 (13:27)
[2024-04-25] MEDS: CLOPIDOGREL BISULFATE 75 MG TABLET PO ONE (14:42)
[2024-04-26 04:26] VITALS: BP 121/70; PULSE 78; RESP 18; TEMP 97.5
[2024-04-26 08:03] VITALS: BP 101/74; PULSE 87; RESP 20; TEMP 97.5
[2024-04-26 16:02] VITALS: BP 102/60; PULSE 68; RESP 18; TEMP 97.8
[2024-04-26 19:47] VITALS: BP 135/82; PULSE 69; RESP 18; TEMP 97.3
[2024-04-27 05:12] VITALS: BP 117/69; PULSE 87; RESP 18; TEMP 96.6
[2024-04-27] MEDS ORDERED: SODIUM CHLORIDE 0.9% 1,000 ML ONE (06:27)
[2024-04-27] MEDS ORDERED: SODIUM CL IRRIG SOLN BAG 3,000 ML IRRIG ONE (06:50)
[2024-04-27] MEDS ORDERED: LIDOCAINE/PF 2% 5 ML SYRINGE IVP ONE (07:21)
[2024-04-27] MEDS ORDERED: PROPOFOL 1% 20 ML VIAL IVP ONE (07:21)
[2024-04-27 07:30] LABS: BASOPHILS % (AUTO) 0.5 % (0.0-2.0); EOSINOPHILS % (AUTO) 1.3 % (1.0-6.0); HEMATOCRIT 27.4 % (41-53); HEMOGLOBIN 8.6 g/dL (13.5-17.5); LYMPHOCYTES # (AUTO) 0.7 K/uL (1.0-4.8); LYMPHOCYTES % (AUTO) 10.4 % (22.0-44.0); MEAN CORPUSCULAR HGB CONC 31.5 G/dL (31.0-37.0); MEAN CORPUSCULAR VOLUME 92 fL (80-100); MONOCYTES # (AUTO) 0.7 K/uL (0.1-1.0); MONOCYTES % (AUTO) 11.1 % (2.0-9.0); NEUTROPHILS # (AUTO) 5.1 K/uL (1.8-7.7); NEUTROPHILS % (AUTO) 76.7 % (40.0-70.0); PLATELET COUNT (AUTO) 286 K/uL (150-450); RED BLOOD CELL COUNT(AUTO) 2.97 MIL/uL (4.50-5.90); RED CELL DISTRIBUTION WIDTH 17.4 % (11.5-14.5); WHITE BLOOD COUNT (AUTO) 6.6 K/uL (4.5-11.0)
[2024-04-27 07:54] LABS: ALBUMIN 2.7 g/dL (3.4-5.0); C-REACTIVE PROTEIN QUANT 6.01 mg/dL (0.00-0.30); CALCIUM, TOTAL 10.3 mg/dL (8.8-10.5); CREATININE 4.82 mg/dL (0.60-1.30); POTASSIUM 3.8 mmol/L (3.5-5.1); VANCOMYCIN,RANDOM 21.8 mcg/mL (25.0-50.0)
[2024-04-27] MEDS: BUPIVACAINE HCL/PF 0.25% 30 ML VIAL ONE (09:16)
[2024-04-27] MEDS: LIDOCAINE/PF 1% 30 ML VIAL ONE (09:18)
[2024-04-27] MEDS: VANCOMYCIN HCL 1 GM VIAL ONE ×2 (09:20→09:21)
[2024-04-27 10:01] VITALS: BP 101/68; PULSE 90; RESP 18; TEMP 96.2
[2024-04-27 15:40] VITALS: BP 98/56; PULSE 91; RESP 18; TEMP 95.8
[2024-04-27 19:53] VITALS: BP 92/67; PULSE 94; RESP 18; TEMP 96.2
[2024-04-28] VITALS (13 sets, daily range): BP systolic 101–122; BP diastolic 55–78; PULSE 51–102; RESP 16–18; TEMP 96.8–97.8
[2024-04-28] MEDS ORDERED: SODIUM CHLORIDE 0.9% 500 ML IV ONE (14:33)
[2024-04-28] MEDS: CEFEPIME HCL 2 GM in DEXTROSE 5%-WATER 50 ML IV ONE (14:50)
[2024-04-28] MEDS: MetroNIDAZOLE 500 MG TABLET PO SCH (16:15)
[2024-04-29 04:20] VITALS: BP 109/73; PULSE 96; RESP 18; TEMP 97.6
[2024-04-29 08:06] VITALS: BP 100/63; PULSE 79; RESP 20; TEMP 97.8
[2024-04-29 16:07] VITALS: BP 121/55; PULSE 95; RESP 20; TEMP 98.4
[2024-04-29 20:07] VITALS: BP 107/67; PULSE 94; RESP 20; TEMP 97
[2024-04-30] VITALS (11 sets, daily range): BP systolic 87–109; BP diastolic 53–75; PULSE 59–92; RESP 18–20; TEMP 96.5–98.2
[2024-04-30 07:38] LABS: BASOPHILS % (AUTO) 0.9 % (0.0-2.0); EOSINOPHILS % (AUTO) 1.5 % (1.0-6.0); HEMATOCRIT 26.1 % (41-53); HEMOGLOBIN 8.3 g/dL (13.5-17.5); LYMPHOCYTES # (AUTO) 0.7 K/uL (1.0-4.8); LYMPHOCYTES % (AUTO) 12.2 % (22.0-44.0); MEAN CORPUSCULAR HEMOGLOBIN 28.8 pg (26.0-34.0); MEAN CORPUSCULAR HGB CONC 31.8 G/dL (31.0-37.0); MEAN CORPUSCULAR VOLUME 91 fL (80-100); MONOCYTES # (AUTO) 0.7 K/uL (0.1-1.0); MONOCYTES % (AUTO) 12.5 % (2.0-9.0); NEUTROPHILS # (AUTO) 4.2 K/uL (1.8-7.7); NEUTROPHILS % (AUTO) 72.9 % (40.0-70.0); PLATELET COUNT (AUTO) 299 K/uL (150-450); RED BLOOD CELL COUNT(AUTO) 2.89 MIL/uL (4.50-5.90); WHITE BLOOD COUNT (AUTO) 5.7 K/uL (4.5-11.0)
[2024-04-30 08:12] LABS: ALBUMIN 2.7 g/dL (3.4-5.0); C-REACTIVE PROTEIN QUANT 6.32 mg/dL (0.00-0.30); CALCIUM, TOTAL 10.7 mg/dL (8.8-10.5); CREATININE 5.27 mg/dL (0.60-1.30); POTASSIUM 4.2 mmol/L (3.5-5.1); TOTAL PROTEIN, SERUM 7.2 g/dL (6.4-8.2); VANCOMYCIN,RANDOM 17.8 mcg/mL (25.0-50.0)
[2024-04-30] MEDS: CEFEPIME HCL 2 GM in DEXTROSE 5%-WATER 50 ML IV SCH (14:06)
[2024-04-30] MEDS: VANCOMYCIN 750 MG/WATER(PEG) 150 ML IV ONE (16:25)
[2024-04-30] MEDS ORDERED: SODIUM CHLORIDE 0.9% 1,000 ML ONE (18:08)
[2024-05-01 05:25] VITALS: BP 107/68; PULSE 97; RESP 18; TEMP 97.4
[2024-05-01] MEDS ORDERED: DiphenhydrAMINE HCL 50 MG/ML VIAL ONE (06:04)
[2024-05-01] MEDS ORDERED: PROPOFOL 1% 20 ML VIAL IVP ONE (06:04)
[2024-05-01] MEDS ORDERED: LIDOCAINE/PF 2% 5 ML VIAL ONE (06:04)
[2024-05-01 07:56] VITALS: BP 101/56; PULSE 102; RESP 19; TEMP 97.9
[2024-05-01 15:00] VITALS: BP 106/62; PULSE 99; RESP 19; TEMP 97.6
[2024-05-01] MEDS ORDERED: SODIUM CHLORIDE 0.9% 1,000 ML ONE ×2 (15:43→16:05)
[2024-05-01] MEDS: LIDOCAINE/PF 1% 30 ML VIAL ONE (16:50)
[2024-05-01] MEDS: BUPIVACAINE HCL/PF 0.5% 30 ML VIAL ONE (16:50)
[2024-05-01 18:32] VITALS: BP 96/48; PULSE 75; RESP 19
[2024-05-01 19:40] VITALS: BP 98/57; PULSE 67; RESP 19; TEMP 97.1
[2024-05-01] MEDS: OXYGEN THERAPY IH SCH (20:14)
[2024-05-02] VITALS (12 sets, daily range): BP systolic 101–120; BP diastolic 52–78; PULSE 53–93; RESP 18–19; TEMP 96.7–97.9
[2024-05-02 07:01] LABS: ALBUMIN 2.6 g/dL (3.4-5.0); BILIRUBIN,TOTAL 0.9 mg/dL (0.1-1.0); C-REACTIVE PROTEIN QUANT 5.18 mg/dL (0.00-0.30); CALCIUM, TOTAL 9.4 mg/dL (8.8-10.5); CREATININE 2.87 mg/dL (0.60-1.30); POTASSIUM 3.7 mmol/L (3.5-5.1); TOTAL PROTEIN, SERUM 6.8 g/dL (6.4-8.2)
[2024-05-02 07:03] LABS: BASOPHILS % (AUTO) 0.6 % (0.0-2.0); EOSINOPHILS % (AUTO) 0.8 % (1.0-6.0); HEMATOCRIT 24.8 % (41-53); HEMOGLOBIN 7.8 g/dL (13.5-17.5); LYMPHOCYTES # (AUTO) 0.6 K/uL (1.0-4.8); LYMPHOCYTES % (AUTO) 10.4 % (22.0-44.0); MEAN CORPUSCULAR HEMOGLOBIN 28.2 pg (26.0-34.0); MEAN CORPUSCULAR HGB CONC 31.4 G/dL (31.0-37.0); MEAN CORPUSCULAR VOLUME 90 fL (80-100); MONOCYTES # (AUTO) 0.7 K/uL (0.1-1.0); MONOCYTES % (AUTO) 11.5 % (2.0-9.0); NEUTROPHILS # (AUTO) 4.8 K/uL (1.8-7.7); NEUTROPHILS % (AUTO) 76.7 % (40.0-70.0); PLATELET COUNT (AUTO) 301 K/uL (150-450); RED BLOOD CELL COUNT(AUTO) 2.75 MIL/uL (4.50-5.90); RED CELL DISTRIBUTION WIDTH 18.3 % (11.5-14.5); WHITE BLOOD COUNT (AUTO) 6.2 K/uL (4.5-11.0)
[2024-05-02] MEDS: EPOETIN ALFA 10,000 UNITS/ML VIAL SQ SCH (10:01)
[2024-05-03 04:19] VITALS: BP 102/69; PULSE 92; RESP 18; TEMP 97.5
[2024-05-03 08:54] VITALS: BP 93/51; PULSE 85; RESP 18; TEMP 97.3
[2024-05-03] MEDS: VANCOMYCIN 750 MG/WATER(PEG) 150 ML IV ONE (09:06)
[2024-05-03] MEDS: CALCITRIOL 0.25 MCG CAPSULE PO SCH (09:18)
[2024-05-03 15:43] VITALS: BP 111/62; PULSE 72; RESP 18; TEMP 96.2
[2024-05-03 19:42] VITALS: BP 92/60; PULSE 64; RESP 18; TEMP 95.1
[2024-05-04] VITALS (15 sets, daily range): BP systolic 80–113; BP diastolic 50–69; PULSE 62–89; RESP 18–19; TEMP 97.5–97.6
[2024-05-04] MEDS: ALBUMIN HUMAN 25%-12.5GM/50ML 50 ML IV ONE ×2 (05:23→05:49)
[2024-05-04] MEDS ORDERED: DOCU-385 PO (10:41)
[2024-05-04] MEDS ORDERED: FOLI0.4T6 PO (10:42)
[2024-05-04] MEDS ORDERED: METR500 PO (10:45)
[2024-05-04] MEDS ORDERED: PANT-31 PO (10:46)
[2024-05-04] MEDS ORDERED: BISA10SU11 PR (10:48)
[2024-05-04] MEDS ORDERED: ACET-2247 PO (10:48)
[2024-05-04] MEDS ORDERED: HYDR-4062 PO (10:51)
[2024-05-04] MEDS ORDERED: CEFE2VIA IV (10:55)
[2024-05-04] MEDS ORDERED: VANCOMYCIN H IVPB (11:09)
[2024-05-04] MEDS ORDERED: ALBUMIN HUMAN 25%-12.5GM/50ML IV BOTTLE ONE (12:00)
[2024-05-07] MEDS ORDERED: EPOETIN ALFA 10,000 UNITS/ML 2 ML VIAL SQ SCH (09:00)
== END 2024-05-04 16:22 | DRG 463 ==
LOC: EMS 16:25 → 6N 21:32
PROVIDERS: ADMIT Internal Medicine; ATTEND Internal Medicine
PROC: 5A1D70Z Performance of Urinary Filtration, Intermittent, Less than 6 Hours Per Day (ICD-10-PCS; 2024-04-18)
PROC: 0JBQ0ZZ Excision of Right Foot Subcutaneous Tissue and Fascia, Open Approach (ICD-10-PCS; 2024-04-19)
PROC: 0QBL0ZX Excision of Right Tarsal, Open Approach, Diagnostic (ICD-10-PCS; 2024-04-19)
PROC: 5A1D70Z Performance of Urinary Filtration, Intermittent, Less than 6 Hours Per Day (ICD-10-PCS; 2024-04-20)
PROC: 5A1D70Z Performance of Urinary Filtration, Intermittent, Less than 6 Hours Per Day (ICD-10-PCS; 2024-04-23)
PROC: 047P3ZZ Dilation of Right Anterior Tibial Artery, Percutaneous Approach (ICD-10-PCS; principal; 2024-04-24)
PROC: 047T3ZZ Dilation of Right Peroneal Artery, Percutaneous Approach (ICD-10-PCS; 2024-04-24)
PROC: B4101ZZ Fluoroscopy of Abdominal Aorta using Low Osmolar Contrast (ICD-10-PCS; 2024-04-24)
PROC: 5A1D70Z Performance of Urinary Filtration, Intermittent, Less than 6 Hours Per Day (ICD-10-PCS; 2024-04-25)
PROC: 0JBQ0ZZ Excision of Right Foot Subcutaneous Tissue and Fascia, Open Approach (ICD-10-PCS; 2024-04-27)
PROC: 0QBL0ZX Excision of Right Tarsal, Open Approach, Diagnostic (ICD-10-PCS; 2024-04-27)
PROC: 0LBN0ZZ Excision of Right Lower Leg Tendon, Open Approach (ICD-10-PCS; 2024-04-27)
PROC: 5A1D70Z Performance of Urinary Filtration, Intermittent, Less than 6 Hours Per Day (ICD-10-PCS; 2024-04-27)
PROC: 5A1D70Z Performance of Urinary Filtration, Intermittent, Less than 6 Hours Per Day (ICD-10-PCS; 2024-04-28)
PROC: 5A1D70Z Performance of Urinary Filtration, Intermittent, Less than 6 Hours Per Day (ICD-10-PCS; 2024-04-30)
PROC: 0JBQ0ZZ Excision of Right Foot Subcutaneous Tissue and Fascia, Open Approach (ICD-10-PCS; 2024-05-01)
PROC: 0JBQ0ZZ Excision of Right Foot Subcutaneous Tissue and Fascia, Open Approach (ICD-10-PCS; 2024-05-01)
PROC: 0QBL0ZX Excision of Right Tarsal, Open Approach, Diagnostic (ICD-10-PCS; 2024-05-01)
PROC: 5A1D70Z Performance of Urinary Filtration, Intermittent, Less than 6 Hours Per Day (ICD-10-PCS; 2024-05-02)
PROC: 5A1D70Z Performance of Urinary Filtration, Intermittent, Less than 6 Hours Per Day (ICD-10-PCS; 2024-05-04)
DX: M86.171 Other acute osteomyelitis, right ankle and foot (principal); N18.6 End stage renal disease; L03.115 Cellulitis of right lower limb; I12.0 Hypertensive chronic kidney disease with stage 5 chronic kidney disease or end stage renal disease; N13.30 Unspecified hydronephrosis; L97.419 Non-pressure chronic ulcer of right heel and midfoot with unspecified severity; N25.81 Secondary hyperparathyroidism of renal origin; L02.415 Cutaneous abscess of right lower limb; Z99.2 Dependence on renal dialysis; I73.9 Peripheral vascular disease, unspecified; M65.10 Other infective (teno)synovitis, unspecified site; F17.210 Nicotine dependence, cigarettes, uncomplicated; J44.9 Chronic obstructive pulmonary disease, unspecified; N40.0 Benign prostatic hyperplasia without lower urinary tract symptoms; I48.0 Paroxysmal atrial fibrillation; K21.9 Gastro-esophageal reflux disease without esophagitis; E21.3 Hyperparathyroidism, unspecified; D63.1 Anemia in chronic kidney disease; E78.5 Hyperlipidemia, unspecified; Z79.01 Long term (current) use of anticoagulants; Z79.899 Other long term (current) drug therapy
CPT/HCPCS: 36200; 71045; 73700; 73718; 75630; 75716; 75962; 80048; 80053; 80202; 83605; 83735; 83880; 84100; 84145; 84484; 85025; 85610; 85730; 86140; 87040; 87070; 87075; 87081; 87101; 87205; 87340; 88305; 88311; 90935; 93005; 93925; 97167; 97530; 97535; 99285; C2623; J0692; J0885; J1200; J1644; J2150; J2250; J2543; J2704; J2720; J3010; J3370; J3490; J7030; J7040; J7060; P9047; Q9967; 36415-L1; 36415-TC; Z7610